=== PATIENT | male | born 1950 | race Caucasian/White ===

== ENCOUNTER 2019-10-05 18:43 | Inpatient (IN) | payer MEDICARE, OTHER, SELFPAY ==
[2019-10-05] VITALS (9 sets, daily range): BP systolic 114–140; BP diastolic 54–78; PULSE 49–79; RESP 16–18; TEMP 36.8; O2SAT 93–99; BMI 29.8
--- NOTE | 2019-10-05 18:52 | CTR_ITS ---
PROCEDURE INFORMATION: Exam: CT Head Without Contrast Exam date and time: 10/05/2019 7:09 PM Age: 68 years old Clinical indication: Syncope and collapse; Patient HX: Syncope after taking 2 ntg TECHNIQUE: Imaging protocol: Computed tomography of the head without contrast. Total DLP: 778.5 mGy-cm Radiation optimization: All CT scans at this facility use at least one of these dose optimization techniques: automated exposure control; mA and/or kV adjustment per patient size (includes targeted exams where dose is matched to clinical indication); or iterative reconstruction. COMPARISON: No relevant prior studies available. FINDINGS: Brain: Normal. No hemorrhage. Unremarkable white matter. No mass effect. Ventricles: Normal. No ventriculomegaly. Bones/joints: Unremarkable. No acute fracture. Sinuses: Visualized sinuses are unremarkable. No fluid levels. Mastoid air cells: Visualized mastoid air cells are well aerated. Soft tissues: Unremarkable. Vasculature: Severe calcified intracranial atherosclerotic vessel disease. CT/CT head wo con* [id number] IMPRESSION: No acute intracranial findings. Radiation Dose CTDIVOL = (mGy): DLP = 778.5 (mGy-cm)
--- NOTE | 2019-10-05 18:52 | ECG_ITS ---
Measurements Intervals [place] Rate: 59 P: 44 SC: 154 QRS: 66 QRSD: 102 T: 30 QT: 406 QTc: 403 SINUS BRADYCARDIA WITH SINUS ARRHYTHMIA No previous ECG available for comparison Electronically Signed On 10-06-2019 9:12:03 CDT by Logan Shaver [id number]
--- NOTE | 2019-10-05 18:54 | XRR_ITS ---
PROCEDURE INFORMATION: Exam: XR Chest, 1 View Exam date and time: 10/05/2019 7:23 PM Age: 68 years old Clinical indication: Prior surgery; Surgery date: 6+ months; Surgery type: Stents; Patient HX: PT had a syncopeal episode before arrival; Additional info: Syncope TECHNIQUE: Imaging protocol: XR of the chest Views: 1 view. COMPARISON: No relevant prior studies available. FINDINGS: Lungs: Unremarkable. No consolidation. Pleural space: Unremarkable. No pleural effusion. No pneumothorax. Heart/Mediastinum: Unremarkable. No cardiomegaly. Bones/joints: Moderate thoracic spondylosis. Mild right primary glenohumeral osteoarthritis. Mild right acromioclavicular arthropathy. XR/XR chest 1V portable [id number] IMPRESSION: No acute findings.
--- NOTE | 2019-10-05 18:55 | W.ED.CHESTPA ---
HPI - Chest Pain General: Chief Complaint: Chest Pain Stated Complaint: SYNCOPE AFTER NTG; CHEST PAIN Time Seen by Provider: 10/05/19 18:52 Source: patient Mode of arrival: ambulatory Limitations: no limitations History of Present Illness: HPI narrative: Patient comes in today by EMS from couple for complaints of some bilateral arm pain and some midsternal chest discomfort. Patient was concerned it may have been a episode of angina or heart problems and took 1 of his nitroglycerin. After taken nitroglycerin patient got lightheaded and felt worse. Patient then contacted EMS and was brought to the emergency department. After EMS arrived and patient was evaluated he felt better and states all symptoms have resolved. Patient denies any loss of consciousness. Patient does have diabetes type 2, hypertension and some coronary artery disease. Patient appears well. Patient appears in no pain at this time. Primary care in Dr. Ordonez in [place]. 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) Review of Systems General: Reports: 10 or more systems reviewed and unremarkable except in HPI and below Card: Reports: chest pain and pre-syncope [facility] PFSH: Social History Smoking and tobacco status: never smoked Physical Exam Const: COMMON NORMALS: no apparent distress and oriented x3 GENERAL APPEARANCE: cooperative HENMT: COMMON NORMALS: normocephalic, external ears normal, EAC's normal, TM's normal bilaterally and external nose normal HEAD & SCALP: normal to inspection and normocephalic FACE & SINUS: normal facial exam NOSE: external nose normal GENERAL EAR: hearing not grossly impaired EXTERNAL EAR: Yes external ears normal EXTERNAL AUDITORY CANAL: EAC's normal TYMPANIC MEMBRANE: TM's normal bilaterally MOUTH: oral and palatal mucosa normal THROAT: posterior oropharynx normal Eye: COMMON NORMALS: PERRL and EOMs intact bilaterally PUPIL: Yes PERRL Neck/C-Spine: COMMON NORMALS: full ROM and no lymphadenopathy Lymph: LYMPHATIC: no lymphedema noted Chest: COMMONS NORMALS: inspection of chest normal and palpation of chest normal Resp: COMMON NORMALS: normal respiratory effort and clear to auscultation bilaterally AUSCULTATION: clear to auscultation bilaterally Cardio: COMMON NORMALS: regular rate and regular rhythm RATE: regular rate RHYTHM: regular rhythm GI: COMMON NORMALS: normal to inspection, nondistended, normoactive bowel sounds and non-tender : COMMON NORMALS: Yes no CVA tenderness BLADDER/KIDNEY EXAM: Yes no CVA tenderness Back/Pelvis: COMMON NORMALS: no CVA tenderness and thoracic and lumbar spine normal to inspection Extremity: COMMON NORMALS: normal to inspection GENERAL: No edema Neuro: COMMON NORMALS: oriented x3, moves all extremities and no focal motor deficits Psych: COMMON NORMALS: mental status grossly normal and cooperative Skin: COMMON NORMALS: no rashes or lesions noted GENERAL SKIN EXAM: no rashes or lesions noted Course ED course: 2199, second troponin came back slightly elevated at 19 with a delta at 7. Reviewed patient with Dr. Smallwood regarding admission. At this time she recommended d-dimer and repeat troponin at 6-hour. Patient's last stent was 10 years ago approximately, with last stress test being 2 years ago and last cardiac visit 2 years ago. Patient at this time is pain-free and is agreeable to plan. 0120, Troponin climbed to 46 with delta increasing to 35. Dr. Smallwood notified and agreed to admission. Vital Signs: Vital signs: Vital Signs Temperature 98.2 F 10/05/19 18:48 Pulse Rate 50 L 10/06/19 00:43 Respiratory Rate 16 10/06/19 00:43 Blood Pressure 115/65 10/05/19 23:50 Pulse Oximetry 97 10/05/19 23:50 MDM - Chest Pain MDM Narrative: Medical decision making narrative: Patient comes in today with complaints of an episode of presyncopal after the use of nitro sublingual. Patient has had some chest pressure on arrival to the ER but has had no other symptoms and symptoms have improved throughout ER stay. Exam notes respirations are even lungs are clear to auscultation. No changes have been noted on the EKG. Differential diagnosis includes ACS, arrhythmia, syncope, TIA, CVA, PE. Laboratory values noted a slowly rising troponin with a 6-hour troponin going to a delta change of 35. D-dimer was negative. CMP and CBC were normal. Lactic was negative. Alcohol and drug screen was negative. Patient needs admission for further monitor and evaluation further with cardio. Patient reports understanding of need for admission and was admitted to observation status per Dr. Smallwood's request. Lab Data: Labs: Lab Results 10/05/19 10/05/19 10/05/19 Range/Units 19:04 19:04 19:04 WBC 8.3 (4.0-10.0) 10^3/ uL RBC 4.69 (4.1-5.3) 10^6/u L Hgb 13.8 (11.7-16.6) g/dL Hct 43.2 (42.0-52.0) % MCV 92.1 (80-94) fL MCH 29.4 (28.0-34.0) pg MCHC 31.9 (30.0-36.0) g/dL RDW 12.2 (12.1-15.1) % Plt Count 203 (130-400) 10^3/c mm MPV 10.3 (7.4-10.4) fL Neut % (Auto) 54.2 % Lymph % (Auto) 32.4 % [place] % (Auto) 8.5 % Eos % (Auto) 3.8 % Baso % (Auto) 0.7 % Neut # (Auto) 4.5 (1.8-7.7) 10^3/u L Lymph # (Auto) 2.7 (0.8-4.8) 10^3/u L [place] # (Auto) 0.7 (0.2-0.9) 10^3/u L Eos # (Auto) 0.3 (0.0-0.8) 10^3/u L Baso # (Auto) 0.1 (0.0-0.1) 10^3/u L Nucleated RBC % (a uto) 0 % Nucleated RBCs # 0.0 /100WBC D-Dimer (0-0.59) ug/mIFE U Sodium 137 (136-145) mmol/L Potassium 5.0 (3.5-5.1) mmol/L Chloride 101 (98-107) mmol/L Carbon Dioxide 25 (22-29) mmol/L Anion Gap 16.0 (5-19) BUN 19 (8-23) mg/dL Creatinine 1.3 H (0.7-1.2) mg/dL GFR Calculation 54.9 L (90-130) mL/min Glucose 181 H (65-115) mg/dL Calculated Osmolal ity 285 (285-295) mOsm/k g Lactic Acid 1.5 (0.5-2.2) mmol/L Calcium 9.9 (8.5-10.5) mg/dL Magnesium 2.1 (1.7-2.3) mg/dL Total Bilirubin 0.2 (0.15-1.2) mg/dL AST 13 (0-40) U/L ALT 13 (0-41) U/L Alkaline Phosphata se 57 (40-130) IU/L Troponin I 6 Hour (0-15) ng/mL Troponin I Hi Sens Del (0-12) ng/L Troponin T Baselin e (0-15) ng/mL Troponin T 120 Min [place] (0-15) ng/mL Delta Troponin T (0-10) ABS# Total Protein 6.2 L (6.6-8.7) g/dL Albumin 4.0 (3.5-5.2) g/dL Globulin 2.2 (1.3-4.6) g/dL TSH 2.89 (0.27-4.20) uIU/ mL Urine Color (Yellow) Urine Appearance (CLEAR) Urine pH (5-7) Ur Specific Gravit y (1.005-1.030) Urine Protein (Negative) Urine Glucose (UA) (Normal) Urine Ketones (Negative) Urine Blood (Negative) Urine Nitrate (Negative) Urine Bilirubin (NEGATIVE) Urine Urobilinogen (Negative) mg/dL Ur Leukocyte Cassi ase (Negative) Urine Opiates Scre en (Negative) ng/mL Ur Barbiturates Sc reen (Negative) ng/mL Ur Phencyclidine S crn (Negative) ng/mL Ur Amphetamines Sc reen (Negative) ng/mL U Benzodiazepines Scrn (Negative) ng/mL Urine Cocaine Scre en (Negative) ng/mL U Marijuana (THC) Screen (Negative) ng/mL Ethyl Alcohol < 10 (0-10) mg/dL 10/05/19 10/05/19 10/05/19 Range/Units 19:04 19:04 19:05 WBC (4.0-10.0) 10^3/ uL RBC (4.1-5.3) 10^6/u L Hgb (11.7-16.6) g/dL Hct (42.0-52.0) % MCV (80-94) fL MCH (28.0-34.0) pg MCHC (30.0-36.0) g/dL RDW (12.1-15.1) % Plt Count (130-400) 10^3/c mm MPV (7.4-10.4) fL Neut % (Auto) % Lymph % (Auto) % [place] % (Auto) % Eos % (Auto) % Baso % (Auto) % Neut # (Auto) (1.8-7.7) 10^3/u L Lymph # (Auto) (0.8-4.8) 10^3/u L [place] # (Auto) (0.2-0.9) 10^3/u L Eos # (Auto) (0.0-0.8) 10^3/u L Baso # (Auto) (0.0-0.1) 10^3/u L Nucleated RBC % (a uto) % Nucleated RBCs # /100WBC D-Dimer <= 0.27 (0-0.59) ug/mIFE U Sodium (136-145) mmol/L Potassium (3.5-5.1) mmol/L Chloride (98-107) mmol/L Carbon Dioxide (22-29) mmol/L Anion Gap (5-19) BUN (8-23) mg/dL Creatinine (0.7-1.2) mg/dL GFR Calculation (90-130) mL/min Glucose (65-115) mg/dL Calculated Osmolal ity (285-295) mOsm/k g Lactic Acid (0.5-2.2) mmol/L Calcium (8.5-10.5) mg/dL Magnesium (1.7-2.3) mg/dL Total Bilirubin (0.15-1.2) mg/dL AST (0-40) U/L ALT (0-41) U/L Alkaline Phosphata se (40-130) IU/L Troponin I 6 Hour (0-15) ng/mL Troponin I Hi Sens Del (0-12) ng/L Troponin T Baselin e 12 (0-15) ng/mL Troponin T 120 Min [place] (0-15) ng/mL Delta Troponin T (0-10) ABS# Total Protein (6.6-8.7) g/dL Albumin (3.5-5.2) g/dL Globulin (1.3-4.6) g/dL TSH (0.27-4.20) uIU/ mL Urine Color Yellow (Yellow) Urine Appearance Clear (CLEAR) Urine pH 5 (5-7) Ur Specific Gravit y 1.025 (1.005-1.030) Urine Protein Neg (Negative) Urine Glucose (UA) Trace H (Normal) Urine Ketones Negative (Negative) Urine Blood Neg (Negative) Urine Nitrate Negative (Negative) Urine Bilirubin Neg (NEGATIVE) Urine Urobilinogen Norm (Negative) mg/dL Ur Leukocyte Cassi ase Negative (Negative) Urine Opiates Scre en (Negative) ng/mL Ur Barbiturates Sc reen (Negative) ng/mL Ur Phencyclidine S crn (Negative) ng/mL Ur Amphetamines Sc reen (Negative) ng/mL U Benzodiazepines Scrn (Negative) ng/mL Urine Cocaine Scre en (Negative) ng/mL U Marijuana (THC) Screen (Negative) ng/mL Ethyl Alcohol (0-10) mg/dL 10/05/19 10/05/19 10/06/19 Range/Units 19:05 20:51 00:47 WBC (4.0-10.0) 10^3/ uL RBC (4.1-5.3) 10^6/u L Hgb (11.7-16.6) g/dL Hct (42.0-52.0) % MCV (80-94) fL MCH (28.0-34.0) pg MCHC (30.0-36.0) g/dL RDW (12.1-15.1) % Plt Count (130-400) 10^3/c mm MPV (7.4-10.4) fL Neut % (Auto) % Lymph % (Auto) % [place] % (Auto) % Eos % (Auto) % Baso % (Auto) % Neut # (Auto) (1.8-7.7) 10^3/u L Lymph # (Auto) (0.8-4.8) 10^3/u L [place] # (Auto) (0.2-0.9) 10^3/u L Eos # (Auto) (0.0-0.8) 10^3/u L Baso # (Auto) (0.0-0.1) 10^3/u L Nucleated RBC % (a uto) % Nucleated RBCs # /100WBC D-Dimer (0-0.59) ug/mIFE U Sodium (136-145) mmol/L Potassium (3.5-5.1) mmol/L Chloride (98-107) mmol/L Carbon Dioxide (22-29) mmol/L Anion Gap (5-19) BUN (8-23) mg/dL Creatinine (0.7-1.2) mg/dL GFR Calculation (90-130) mL/min Glucose (65-115) mg/dL Calculated Osmolal ity (285-295) mOsm/k g Lactic Acid (0.5-2.2) mmol/L Calcium (8.5-10.5) mg/dL Magnesium (1.7-2.3) mg/dL Total Bilirubin (0.15-1.2) mg/dL AST (0-40) U/L ALT (0-41) U/L Alkaline Phosphata se (40-130) IU/L Troponin I 6 Hour 46.94 H (0-15) ng/mL Troponin I Hi Sens Del 34.94 H* (0-12) ng/L Troponin T Baselin e (0-15) ng/mL Troponin T 120 Min [place] 19.44 H (0-15) ng/mL Delta Troponin T 7.44 (0-10) ABS# Total Protein (6.6-8.7) g/dL Albumin (3.5-5.2) g/dL Globulin (1.3-4.6) g/dL TSH (0.27-4.20) uIU/ mL Urine Color (Yellow) Urine Appearance (CLEAR) Urine pH (5-7) Ur Specific Gravit y (1.005-1.030) Urine Protein (Negative) Urine Glucose (UA) (Normal) Urine Ketones (Negative) Urine Blood (Negative) Urine Nitrate (Negative) Urine Bilirubin (NEGATIVE) Urine Urobilinogen (Negative) mg/dL Ur Leukocyte Cassi ase (Negative) Urine Opiates Scre en Negative (Negative) ng/mL Ur Barbiturates Sc reen Negative (Negative) ng/mL Ur Phencyclidine S crn Negative (Negative) ng/mL Ur Amphetamines Sc reen Negative (Negative) ng/mL U Benzodiazepines Scrn Negative (Negative) ng/mL Urine Cocaine Scre en Negative (Negative) ng/mL U Marijuana (THC) Screen Negative (Negative) ng/mL Ethyl Alcohol (0-10) mg/dL EKG Data^: EKG 1: Attestation: I personally reviewed and interpreted this EKG as follows: (1925, Sinus bradycardia, rate 59 regular, no ectopy, no ST elevation) EKG 2: Attestation: I personally reviewed and interpreted this EKG as follows: (2205, NSR, no ectopy, no ST elevation, rate 64 and regular) EKG 3: Attestation: I personally reviewed and interpreted this EKG as follows: (0044 sinus concepción, regular rate 50 bpm, no ectopy, no ST elevation, no change) Discharge Plan Discharge Patient Disposition: Placed in Observation Clinical Impression: Elevated troponin Chest pain Qualifiers: Chest pain type: chest pain due to myocardial ischemia Ischemic chest pain type: unspecified angina pectoris type Qualified Code(s): I25.9 - Chronic ischemic heart disease, unspecified Condition: Stable Referrals: Jose Alberto Ordonez [Primary Care Provider] - Coding Level of Care Code ED Tanning Wheel Filler for Chg Fwd Exam Comprehensive
[2019-10-05 19:23] LABS: Basophils # 0.1 10^3/uL (0.0-0.1); Basophils % 0.7 %; Eosinophils # 0.3 10^3/uL (0.0-0.8); Eosinophils % 3.8 %; Hematocrit 43.2 % (42.0-52.0); Hemoglobin 13.8 g/dL (11.7-16.6); Lymphocytes # 2.7 10^3/uL (0.8-4.8); Lymphocytes % 32.4 %; Mean Corpuscular HGB Conc 31.9 g/dL (30.0-36.0); Mean Corpuscular Hemoglobin 29.4 pg (28.0-34.0); Mean Corpuscular Volume 92.1 fL (80-94); Mean Platelet Volume 10.3 fL (7.4-10.4); Monocytes # 0.7 10^3/uL (0.2-0.9); Monocytes % 8.5 %; Neutrophils # 4.5 10^3/uL (1.8-7.7); Neutrophils % 54.2 %; Nucleated Red Blood Cells % 0 %; Platelet Count 203 10^3/cmm (130-400); Red Blood Count 4.69 10^6/uL (4.1-5.3); Red Cell Distribution Width 12.2 % (12.1-15.1); White Blood Count 8.3 10^3/uL (4.0-10.0)
--- NOTE | 2019-10-05 19:29 | PC.NURSE ---
pt to CT
[2019-10-05 19:40] LABS: Lactic Sepsis W/Reflex 1.5 mmol/L (0.5-2.2)
[2019-10-05 19:43] LABS: Troponin(5th) Baseline 12 ng/mL (0-15)
--- NOTE | 2019-10-05 19:47 | PC.NURSE ---
orthostatic blood pressure Lying= 132/71 Ywglfyf=390/74 Avepqfie=461/69
[2019-10-05 19:53] LABS: Alanine Aminotransferase 13 U/L (0-41); Alkaline Phosphatase 57 IU/L (40-130); Aspartate Amino Transferase 13 U/L (0-40); Blood Urea Nitrogen 19 mg/dL (8-23); Calcium 9.9 mg/dL (8.5-10.5); Carbon Dioxide 25 mmol/L (22-29); Chloride 101 mmol/L (98-107); Creatinine Clr Calc Pharmacy 62.7222; Globulin 2.2 g/dL (1.3-4.6); Glomerular Filtration Rate 54.9 mL/min (90-130); Glucose 181 mg/dL (65-115); Magnesium 2.1 mg/dL (1.7-2.3); Osmolality Calculated 285 mOsm/kg (285-295); Sodium 137 mmol/L (136-145); Thyroid Stimulating Hormone 2.89 uIU/mL (0.27-4.20); Total Bilirubin 0.2 mg/dL (0.15-1.2); Total Protein 6.2 g/dL (6.6-8.7)
[2019-10-05 19:59] LABS: Alcohol Level < 10 mg/dL (0-10)
[2019-10-05 20:16] LABS: Add Urine Microscopic? NO
[2019-10-05 20:21] LABS: Bilirubin Urine Neg (NEGATIVE); Blood Urine Neg (Negative); Glucose Urine UA Trace (Normal); Ketones Urine Negative (Negative); Leukocyte Esterase Urine Negative (Negative); Nitrate Urine Negative (Negative); Protein Urine Neg (Negative); Specific Gravity, Urine 1.025 (1.005-1.030); Urine Appearance Clear (CLEAR); Urine Color Yellow (Yellow); Urobilinogen Urine Norm (Negative); pH Urine 5 (5-7)
[2019-10-05 20:30] LABS: Amphetamines Screen Urine Negative (Negative); Barbiturates Screen Urine Negative (Negative); Benzodiazepines Screen Urine Negative (Negative); Cocaine Screen Urine Negative (Negative); Opiate Screen Urine Negative (Negative); PCP Screen Urine Negative (Negative); THC Screen Urine Negative (Negative)
--- NOTE | 2019-10-05 20:52 | ECG_ITS ---
Measurements Intervals [place] Rate: 64 P: 49 MA: 174 QRS: 67 QRSD: 102 T: 30 QT: 398 QTc: 412 SINUS RHYTHM No previous ECG available for comparison Electronically Signed On 10-06-2019 9:12:46 CDT by Logan Shaver [email or web address]
[2019-10-05 21:23] LABS: Troponin 5 2HR 19.44 ng/mL (0-15); Troponin 5 2HR Delta 7.44 ABS# (0-10)
[2019-10-05 22:28] LABS: D Dimer <= 0.27 ug/mIFEU (0-0.59)
--- NOTE | 2019-10-05 23:29 | PC.NURSE ---
PT RESTING WITH AT BEDSIDE. NO C/O VOICED, STATES HE FEELS BETTER THAN WHEN HE CAME IN. HEART RATE NOTED AT 50-55 BPM WHEN PT IS SLEEPING. PT WAITING 6 HR TROPONIN AT THIS TIME.
[2019-10-06] VITALS (13 sets, daily range): BP systolic 119–155; BP diastolic 61–95; PULSE 50–104; RESP 16–22; TEMP 36.5–37.1; O2SAT 95–98
--- NOTE | 2019-10-06 00:52 | ECG_ITS ---
Measurements Intervals [place] Rate: 50 P: 50 [place]: 173 QRS: 73 QRSD: 106 T: 10 QT: 440 QTc: 405 SINUS BRADYCARDIA NONSPECIFIC T-WAVE ABNORMALITY No previous ECG available for comparison Electronically Signed On 10-06-2019 9:12:33 CDT by Logan Shaver [email or web address]
[2019-10-06 01:06] LABS: Troponin 5 6HR 46.94 ng/mL (0-15)
[2019-10-06 01:13] LABS: Troponin 5 6HR Delta 34.94 ng/L (0-12)
--- NOTE | 2019-10-06 01:14 | PC.NURSE ---
Critical troponin and delta for 6 hour troponin relayed to ELIGIO Whitney.
[2019-10-06] MEDS: aspirin 81 mg Chew Tablet 324 MG PO (01:25)
--- NOTE | 2019-10-06 01:54 | PC.NURSE ---
Called report to KAYELY Zacarias on Med/Surg 2nd floor
[2019-10-06] MEDS: sodium chloride 0.9% 1,000 ML 100 ML IV (02:50)
--- NOTE | 2019-10-06 03:02 | PC.NURSE ---
Pt Arrived from ER in wheel chair escorted by nurse. AAOx3, denies pain or discomfort. Orientated to room and call light. Vitals taken and pt placed on heart monitor, sinus concepción at 53.
--- NOTE | 2019-10-06 04:04 | P.HP_ITS ---
Providers/Chief Complaint Admitting Physician: Kristin Deutsch MD Primary Care Provider: Jose Alberto Ordonez Chief Complaint: SYNCOPE; CHEST PAIN History of Present Illness Travis Garzon is a 68 year old male with PMH CAD, DM, usually follows with cardiologistin Yasir who presented with c/o chest pressure and B/L elbow pain starting yesetrday evening. The elbow pain had been ongoing for about 1 week but chest pressure started yesterday. He took nitroglycerin tablet and this made him light headed, so he ended up calling EMS. His symptoms initially resolved but then returned on presentation to ER. PAin does not appear to be associated to exertion or activity. No apparent aggravating or relieving factors. No shortness of breath. EKGs thus far without acute ST-T changes. His baseline troponin was WNL, subsequently deltas have returned at 7.44 and 34.94. Thus far he has received ASA 325 mg. D dimer was negative. Vitals have been stable, 02 sat 96% on RA. Review of Systems General: Reports: 10 or more systems reviewed and unremarkable except in HPI and below Const: Denies: fever, chills or body aches Eyes: Denies: change in vision, blurry vision or photophobia ENMT: Reports: hoarseness; Denies: throat pain, enlarged tonsils, painful swallowing or nasal congestion Card: Denies: chest pain, palpitations, irregular heart rhythm, edema, swelling of feet/ankles, lightheadedness, pre-syncope, shortness of breath on exertion or shortness of breath when lying down Resp: Denies: shortness of breath, productive cough, non-productive cough, wheezing, stridor, pain on inspiration, change in phlegm color, coughing up blood or chest congestion GI: Denies: abdominal pain, nausea, vomiting, vomiting blood, coffee grounds in vomit, difficulty swallowing, heartburn/indigestion, diarrhea, constipation, cramping, change in stool character, blood in stool or black tarry stool : Denies: flank pain, painful urination, urinary frequency, urinary urgency, urinary hesitancy or blood in urine Musc: Denies: neck pain, back pain, extremity pain, joint swelling, joint warmth or deformity Neuro: Denies: headache, numbness in extremities, weakness in extremities, changes in sensation, difficulty walking, frequent falls, dizziness, vertigo, behavioral changes, slurred speech or seizure-like activity Psych: Denies: anxiety, depression, suicidal ideation or homicidal ideation Endo: Denies: excessive urination, excessive thirst, tired all the time, cold intolerance or hot flashes Donnie/Lymph: Denies: easy bruising or easy bleeding Medications/Allergies Home Medications Medication Instructions Recorded Confirmed Last Taken Type Lantus Solostar U-100 Insulin 30 unit SUBCUT BEDTIME 10/06/19 10/07/19 Unknown History aspirin 81 mg PO DAILY 10/06/19 10/06/19 Unknown History enalapril maleate 20 mg PO DAILY 10/06/19 10/06/19 Unknown History metformin 1,000 mg PO BID 10/06/19 10/06/19 Unknown History metoprolol succinate 25 mg PO DAILY 10/06/19 10/06/19 Unknown History nitroglycerin 0.4 mg SUBLINGUAL Q5M PRN 10/06/19 10/06/19 Unknown History Allergies Allergy/AdvReac Type Severity Reaction Status Date / Time No Known Allergies Allergy Verified 10/05/19 18:48 PFSH Acute PFSH: Medical History Atherosclerotic heart disease of [place] coronary artery with unstable angina pectoris Benign essential hypertension with target blood pressure below 140/90 Dyslipidemia (high LDL; low HDL) Type 2 diabetes mellitus Social History Smoking and tobacco status: never smoked Vitals/I&O/Wt Last Vital Signs Temp 98.0 F 10/06/19 02:14 Pulse 65 10/06/19 02:14 Resp 18 10/06/19 02:14 BP 155/85 10/06/19 02:14 Pulse Ox 97 10/06/19 02:14 Weight last 48 hrs Weight 94.347 kg Physical Exam Narrative: EXAM NARRATIVE: GEN: Awake, alert and oriented, no acute distress CVS: S1S2 N RS: CTA B/L Abd: Soft, nt/nd , bs+ DOCUMENT SCANNER: no focal neuro deficits Data : 10/08/19 03:15 10/08/19 03:15 A&P Assessment and plan (1) NSTEMI (non-ST elevated myocardial infarction): ASA 325mg , B blockers, statin troponin delta 7.44 and 34 cardiology consult if ongoing chest pain TTE Status: Acute Code(s): I21.4 - Non-ST elevation (NSTEMI) myocardial infarction (2) CAD (coronary artery disease): Status: Chronic Code(s): I25.10 - Atherosclerotic heart disease of [place] coronary artery without angina pectoris (3) Diabetes: insulin sliding scale Status: Chronic Qualifiers: Diabetes mellitus type: type 2 Diabetes mellitus detention insulin use: without detention use Diabetes mellitus complication status: with hyperglycemia Qualified Code(s): E11.65 - Type 2 diabetes mellitus with hyperglycemia Code(s): E11.9 - Type 2 diabetes mellitus without complications (4) Chest pain: Status: Acute Qualifiers: Chest pain type: chest pain due to myocardial ischemia Ischemic chest pain type: unspecified angina pectoris type Qualified Code(s): I25.9 - Chronic ischemic heart disease, unspecified Code(s): R07.9 - Chest pain, unspecified Attestations Medical Necessity Statement*: admit for chest pain rule out with rising troponins Coding Level of Care Code Acute Cow Tester for [facility] Fwd Diagnoses NSTEMI (non-ST elevated myocardial infarction) I21.4 CAD (coronary artery disease) I25.10 Diabetes E11.65 Diabetes mellitus type: type 2 Diabetes mellitus detention 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
[2019-10-06 06:19] LABS: Glucose Point of Care 120 mg/dL (70-110)
[2019-10-06 07:13] LABS: Basophils # 0.1 10^3/uL (0.0-0.1); Basophils % 0.6 %; Eosinophils # 0.4 10^3/uL (0.0-0.8); Eosinophils % 4.2 %; Hematocrit 42.7 % (42.0-52.0); Hemoglobin 13.9 g/dL (11.7-16.6); Lymphocytes # 3.6 10^3/uL (0.8-4.8); Lymphocytes % 43.8 %; Mean Corpuscular HGB Conc 32.6 g/dL (30.0-36.0); Mean Corpuscular Hemoglobin 29.3 pg (28.0-34.0); Mean Corpuscular Volume 90.1 fL (80-94); Mean Platelet Volume 10.4 fL (7.4-10.4); Monocytes # 0.8 10^3/uL (0.2-0.9); Monocytes % 9.6 %; Neutrophils # 3.4 10^3/uL (1.8-7.7); Neutrophils % 41.6 %; Nucleated Red Blood Cells % 0 %; Platelet Count 193 10^3/cmm (130-400); Red Blood Count 4.74 10^6/uL (4.1-5.3); White Blood Count 8.3 10^3/uL (4.0-10.0)
--- NOTE | 2019-10-06 07:30 | USCV_ITS ---
Travis Garzon Age: 68 Gender: M : 1950 Exam Date: 10/06/2019 08:51 Ordering Phys: Kristin Deutsch MD Technologist: Sanjuana Turner [place]am [place] [facility] [place]: Syncope, chest pain, evaluate EF, RWMA BP: 137 / 73 HR: 58 Rhythm: Sinus bradycardia Technical Quality: Suboptimal MEASUREMENTS (Male / Female) Normal Values 2D ECHO LV Diastolic Diameter PLAX 3.5 cm 4.2 - 5.9 / 3.9 - 5.3 cm LV Systolic Diameter PLAX 2.5 cm LV Chamber Size 3.8 cm IVS Diastolic Thickness 1.5 cm 0.6 - 1.0 / 0.6 - 0.9 cm IVS Systolic Thickness 1.8 cm LVPW Diastolic Thickness 0.8 cm 0.6 - 1.0 / 0.6 - 0.9 cm LVPW Systolic Thickness 1.1 cm RV Chamber Size 2.0 cm LVOT Diameter 1.9 cm LV Ejection Fraction 2D Teich 58.1 % LV Ejection Fraction MOD 2C 54.2 % LV Ejection Fraction 2C AL 61.1 % LA Diameter 3.5 cm LA Width 2.6 cm LA Height 4.9 cm RA Width 2.9 cm RA Height 3.8 cm Aorta at Sinotubular Diameter 2.7 cm M-MODE LV Diastolic Diameter MM 7.2 cm 4.2 - 5.9 / 3.9 - 5.3 cm LV Systolic Diameter MM 4.8 cm LV Ejection Fraction MM Teich 60.4 % IVS Diastolic Thickness MM 0.9 cm 0.6 - 1.0 / 0.6 - 0.9 cm IVS Systolic Thickness MM 1.2 cm LVPW Diastolic Thickness MM 1.0 cm 0.6 - 1.0 / 0.6 - 0.9 cm LVPW Systolic Thickness MM 1.4 cm Aortic Annulus Diameter 3.6 cm LA Ao Ratio MM 1.0 DOPPLER AV Peak Velocity 109.0 cm/s LVOT Peak Velocity 114.0 cm/s AV Area Cont Eq vti 3.1 cm squared AV Area Cont Eq pk 3.0 cm squared MV Area PHT 3.5 cm squared Mitral E to A Ratio 0.9 MV E' Velocity 11.0 cm/s Mitral E to MV E' Ratio 9.4 Mitral E to LV E' Lateral Ratio 8.0 Mitral E to LV E' Septal Ratio 11.5 TV Peak E Velocity 45.0 cm/s Right Atrial Pressure 3.0 mmHg PV Peak Velocity 66.0 cm/s RV Acceleration Time 0.1 s RV Ejection Time 0.3 s RV AcT/ET 0.3 FINDINGS Left Ventricle Normal left ventricular size and systolic function, EF 64 %. No regional wall motion abnormalities. Right Ventricle The right ventricle is normal in size and function. Right Atrium The right atrium is normal in size. Left Atrium The left atrium is normal in size. Mitral Valve No gross abnormalities noted Aortic Valve No gross abnormalities noted Tricuspid Valve No gross abnormalities noted Pulmonic Valve No gross abnormalities noted Pericardium Normal pericardium without effusion. Aorta Normal ascending aorta dimension. CONCLUSIONS Normal left ventricular size and systolic function, EF 64 %. No regional wall motion abnormalities. No significant stenotic or regurgitant lesions No intracardiac masses There is no pericardial effusion. There are no prior echocardiogram studies to compare. Dr Octaviano Ibrahim MD FACC (Electronically Signed) Final Date: 06 October 2019 10:30 S
[2019-10-06 07:31] LABS: Anion Gap 11.4 (5-19); Blood Urea Nitrogen 16 mg/dL (8-23); Calcium 9.1 mg/dL (8.5-10.5); Carbon Dioxide 30 mmol/L (22-29); Chloride 103 mmol/L (98-107); Glomerular Filtration Rate 60.2 mL/min (90-130); Glucose 127 mg/dL (65-115); Osmolality Calculated 288 mOsm/kg (285-295); Potassium 4.4 mmol/L (3.5-5.1); Sodium 140 mmol/L (136-145)
[2019-10-06 07:33] LABS: Estmated Average Glucose 151; Hemoglobin A1C 6.9 % (4.0-6.0)
[2019-10-06 07:38] LABS: Troponin(5th) Baseline 179 ng/mL (0-15)
[2019-10-06 07:44] LABS: Chol HDL Ratio 4.09 mg/dL (1.0-5.00); Cholesterol 135 mg/dL (0-200); HDL Cholesterol 33 mg/dL (60-100); LDL Cholesterol Calculated 85 mg/dL (50-129); LDL HDL Ratio 2.58 RATIO (0.00-3.22); Triglycerides 87 mg/dL (0-150)
[2019-10-06] MEDS: enoxaparin 100 mg/mL Syringe 90 MG SUBCUT ×2 (08:16→19:37)
[2019-10-06] MEDS: aspirin 81 mg EC Tablet PO (08:17)
[2019-10-06] MEDS: metoprolol succinate ER (24 HR) 25 mg Tablet PO (08:18)
[2019-10-06 09:24] LABS: Troponin 5 2HR 253.5 ng/mL (0-15); Troponin 5 2HR Delta 74.5 ABS# (0-10)
[2019-10-06 11:08] LABS: Glucose Point of Care 182 mg/dL (70-110)
[2019-10-06] MEDS: atorvastatin 40 mg Tablet 20 MG PO (11:33)
[2019-10-06] MEDS: clopidogrel 300 mg Tablet PO (11:33)
--- NOTE | 2019-10-06 11:59 | P.PN_ITS ---
Subjective Subjective: Interval history: No major pain in his chest, but continues to have discomfort in the form of pressure, currently mild. Vitals/I&O/Wt Last Vital Signs Temp 98.0 F 10/06/19 11:27 Pulse 64 10/06/19 11:27 Resp 20 H 10/06/19 11:27 BP 149/73 10/06/19 11:27 Pulse Ox 97 10/06/19 11:27 10/05/19 10/06/19 10/06/19 22:59 06:59 14:59 Intake Total 581.667 / 581.667 Output Total 0 / 0 Balance 0 / 0 581.667 / 581.667 Weight last 48 hrs Weight 94.347 kg Physical Exam Const: COMMON NORMALS: no apparent distress and oriented x3 OTHER: Pleasant. Conversant. HENMT: COMMON NORMALS: oropharynx normal Neck/C-Spine: COMMON NORMALS: no JVD Resp: COMMON NORMALS: normal respiratory effort and clear to auscultation bilaterally AUSCULTATION: clear to auscultation bilaterally Cardio: COMMON NORMALS: no JVD, regular rhythm, S1 normal heart sound, S2 normal heart sound and no murmurs RHYTHM: regular rhythm HEART SOUNDS: S1 normal and S2 normal GI: COMMON NORMALS: normal to inspection, nondistended, normoactive bowel sounds, soft to palpation and non-tender PALPATION: Yes soft Extremity: COMMON NORMALS: no joint enlargement and no pedal edema Neuro: COMMON NORMALS: oriented x3 and moves all extremities Skin: COMMON NORMALS: no rashes or lesions noted GENERAL SKIN EXAM: no rashes or lesions noted Data : 10/06/19 06:50 10/06/19 06:50 A&P Assessment and plan (1) NSTEMI (non-ST elevated myocardial infarction): Aspirin, beta-julius, statin. This morning received Lovenox. Discussed with cardiology. Appreciate recommendations. Loaded with Plavix. TTE pending. Pending additional assessment. Status: Acute Code(s): I21.4 - Non-ST elevation (NSTEMI) myocardial infarction (2) CAD (coronary artery disease): Usually follows with a ceramics machine operator in [place]. Status: Chronic Code(s): I25.10 - Atherosclerotic heart disease of [place] coronary artery without angina pectoris (3) Diabetes: Continue insulin sliding scale. Modify diet to consistent carbohydrate. Status: Chronic Code(s): E11.9 - Type 2 diabetes mellitus without complications (4) Hyperlipidemia: Statin Status: Chronic Code(s): E78.5 - Hyperlipidemia, unspecified Attestations Medical Necessity Statement*: Continue admission for assessment management of non-STEMI. Coding Level of Care Code Acute Groundman/Lineman for [facility] Diagnoses NSTEMI (non-ST elevated myocardial infarction) I21.4 CAD (coronary artery disease) I25.10 Diabetes E11.9 Hyperlipidemia E78.5
--- NOTE | 2019-10-06 12:43 | ECG_ITS ---
Measurements Intervals Vida Rate: 51 P: 34 ID: 147 QRS: 73 QRSD: 110 T: 40 QT: 437 QTc: 403 SINUS BRADYCARDIA No previous ECG available for comparison Electronically Signed On 10-06-2019 20:36:06 CDT by Octaviano Ibrahim M.D. [email or web address]
[2019-10-06 13:20] LABS: Troponin 5 6HR 361.7 ng/mL (0-15); Troponin 5 6HR Delta 182.7 ng/L (0-12)
--- NOTE | 2019-10-06 14:33 | P.CONIM_ITS ---
Providers/Reason For Consult Consulting Physican/Specialty*: ANGY Ibrahim MD/cardiology Reason for Consult*: Patient with chest pain, elevated troponin I, history of coronary artery disease Attending Physician: Everardo Nava Primary Care Provider: Jose Alberto Ordonez History of Present Illness History of Present Illness Travis Garzon is a 68 year old male with a history of coronary disease, high blood pressure, dyslipidemia and type 2 diabetes, apparently has been in his baseline state of health up until yesterday when he started having chest pain. The pain was mild to moderate in intensity and was mid substernal. It did start radiating to both arms. Associated with some shortness of breath and generalized feeling of weakness. No palpitation, dizziness or syncopal episodes. No other associated symptoms or radiation of pain. Because of the persistence of the symptoms, he decided to come to the hospital. Approximately 10 years ago, he had a more or less similar symptoms for which he was seen at the [facility] in [place]. He underwent a cardiac authorization followed by PCI. According the patient, he had 2 stents placed. Details are not evaluated. He used to be followed by a education program manager at the [facility] in [place]. But he has not been to a education program manager for the last year and a half. He has not had any chest pain or unusual shortness of breath. No dizziness or syncopal episodes. He has been compliant with medications. His blood sugar has been fairly under control. No history for any CVA or peripheral artery disease. No history for smoking abuse. No other relevant past medical history. Review of Systems Narrative: CONSTITUTIONAL: No fever or chills. EYES: No blurring of vision or other visual disturbances lately. ENT: No hoarseness of voice, auditory disturbances or sore throat. CARDIOVASCULAR: As mentioned above. RESPIRATORY: No significant cough. GASTROINTESTINAL: No hematemesis or melena. GENITOURINARY: No dysuria or hematuria. INTEGUMENTARY: No skin rashes or history of skin cancer. NEURO: No transient ischemic attacks or amaurosis. PSYCHIATRIC: No history of psychosis or major depression. HEMATOLOGIC: No bleeding disorders or significant anemia. ENDOCRINE: Type 2 diabetes as mentioned above MUSCULOSKELETAL: No recent joint pain or swelling. ALLERGY/IMMUNOLOGY: As mentioned above. Meds/Allergies Home Medications and Allergies Home Medications Medication Instructions Recorded Confirmed Type aspirin 81 mg PO DAILY 10/06/19 10/06/19 History atorvastatin 20 mg PO DAILY 10/06/19 10/06/19 History enalapril maleate 20 mg PO DAILY 10/06/19 10/06/19 History insulin glargine [Lantus Solostar 100 unit SUBCUT BEDTIME 10/06/19 10/06/19 History U-100 Insulin] metformin 1,000 mg PO BID 10/06/19 10/06/19 History metoprolol succinate 25 mg PO DAILY 10/06/19 10/06/19 History nitroglycerin 0.4 mg SUBLINGUAL Q5M PRN 10/06/19 10/06/19 History Allergies Allergy/AdvReac Type Severity Reaction Status Date / Time No Known Allergies Allergy Verified 10/05/19 18:48 Current Medications Current Medications Generic Name Dose Route Start Last Admin Trade Name Freq PRN Reason Stop Dose Admin Aspirin 81 mg 10/06/19 09:00 10/06/19 08:17 Aspirin Ec PO 81 mg DAILY KARLIE Administration Atorvastatin Calcium 20 mg 10/06/19 09:00 10/06/19 11:33 Lipitor PO 20 mg DAILY KARLIE Administration Enalapril Maleate 20 mg 10/06/19 09:00 10/06/19 08:17 Vasotec PO 20 mg DAILY KARLIE Administration Enoxaparin Sodium 90 mg 10/06/19 07:30 10/06/19 08:16 Lovenox 1 mg/kg (90 mg) 90 mg SUBCUT Administration Q12H [facility] Insulin Aspart 0 unit 10/06/19 08:00 10/06/19 11:58 Novolog SUBCUT 6 unit WM&BEDTIME KARLIE Administration Protocol Metoprolol Succinate 25 mg 10/06/19 09:00 10/06/19 08:18 Toprol Xl PO 25 mg DAILY KARLIE Administration PFSH Acute PFSH: Medical History Atherosclerotic heart disease of [place] coronary artery with unstable angina pectoris Benign essential hypertension with target blood pressure below 140/90 Dyslipidemia (high LDL; low HDL) Type 2 diabetes mellitus Social History Smoking and tobacco status: never smoked Vitals/I&O/Wt Last Vital Signs Temp 98.1 F 10/06/19 14:00 Pulse 72 10/06/19 14:00 Resp 22 H 10/06/19 14:00 BP 138/78 10/06/19 14:00 Pulse Ox 98 10/06/19 14:00 10/05/19 10/06/19 10/06/19 22:59 06:59 14:59 Intake Total 581.667 / 581.667 Output Total 0 / 0 Balance 0 / 0 581.667 / 581.667 Weight last 48 hrs Weight 208 lb Physical Exam Narrative: EXAM NARRATIVE: GENERAL: The patient is alert and oriented times three. Not in any acute distress. HEENT: No significant pallor, icterus or lymphadenopathy. The pupils are reactant to light. Oral cavity: There are no mucous membrane lesions. Funduscopic examination: Fundus is not visualized NECK: Trachea appears to be central. No masses noted. No JVD or thyromegaly appreciated. No carotid bruit. RESPIRATORY: Chest is symmetrical. No intercostals muscle retraction or any accessory muscle activation. There is no chest wall tenderness. Breath sounds a re heard bilaterally. No rales or rhonchi heard. No evidence of any consolidation. BREASTS: Deferred. HEART: The PMI not be palpated. No other palpable precordial events. S1 and S2 are normal. No S3 or S4 heard. No pericardial rub or any click heard. ABDOMEN: No vessel pulsations or distention. No tenderness. No organomegaly appreciated. No abdominal bruit. Bowel sounds are normally heard. : Deferred. RECTAL: Deferred. LYMPHATIC: No lymphadenopathy noted in the neck or groin. EXTREMITIES: No edema or cyanosis. No clubbing. The pulses are symmetrical bilaterally. The radial, femoral, dorsalis pedis and the posterior tibial pulses are palpated and found to be in fairly good volume and amplitude. MUSCULOSKELETAL: No acute joint deformities or swelling SKIN: There are no significant rashes or ecchymosis NEUROPSYCHIATRIC: The patient is alert and oriented x3. Appears to be in a good mood. The higher functions are grossly within normal limits. No tremors or rigidity noted. Data Labs: Other Labs: Abnormal lab results 10/05/19 10/05/19 10/05/19 Range/Units 19:04 19:05 20:51 RDW (12.1-15.1) % Carbon Dioxide (22-29) mmol/L Creatinine 1.3 H (0.7-1.2) mg/dL GFR Calculation 54.9 L (90-130) mL/min Glucose 181 H (65-115) mg/dL Hemoglobin A1c (4.0-6.0) % Troponin I 6 Hour (0-15) ng/mL Troponin I Hi Sens Del (0-12) ng/L Troponin T Baselin e (0-15) ng/mL Troponin T 120 Min [place] 19.44 H (0-15) ng/mL Delta Troponin T (0-10) ABS# Total Protein 6.2 L (6.6-8.7) g/dL HDL Cholesterol (60-100) mg/dL Urine Glucose (UA) Trace H (Normal) 10/06/19 10/06/19 10/06/19 Range/Units 00:47 06:50 06:50 RDW 12.0 L (12.1-15.1) % Carbon Dioxide 30 H (22-29) mmol/L Creatinine (0.7-1.2) mg/dL GFR Calculation 60.2 L (90-130) mL/min Glucose 127 H (65-115) mg/dL Hemoglobin A1c (4.0-6.0) % Troponin I 6 Hour 46.94 H (0-15) ng/mL Troponin I Hi Sens Del 34.94 H* (0-12) ng/L Troponin T Baselin e (0-15) ng/mL Troponin T 120 Min [place] (0-15) ng/mL Delta Troponin T (0-10) ABS# Total Protein (6.6-8.7) g/dL HDL Cholesterol (60-100) mg/dL Urine Glucose (UA) (Normal) 10/06/19 10/06/19 10/06/19 Range/Units 06:50 06:50 06:50 RDW (12.1-15.1) % Carbon Dioxide (22-29) mmol/L Creatinine (0.7-1.2) mg/dL GFR Calculation (90-130) mL/min Glucose (65-115) mg/dL Hemoglobin A1c 6.9 H (4.0-6.0) % Troponin I 6 Hour (0-15) ng/mL Troponin I Hi Sens Del (0-12) ng/L Troponin T Baselin e 179 H* (0-15) ng/mL Troponin T 120 Min [place] (0-15) ng/mL Delta Troponin T (0-10) ABS# Total Protein (6.6-8.7) g/dL HDL Cholesterol 33 L (60-100) mg/dL Urine Glucose (UA) (Normal) 10/06/19 10/06/19 Range/Units 08:55 12:51 RDW (12.1-15.1) % Carbon Dioxide (22-29) mmol/L Creatinine (0.7-1.2) mg/dL GFR Calculation (90-130) mL/min Glucose (65-115) mg/dL Hemoglobin A1c (4.0-6.0) % Troponin I 6 Hour 361.7 H (0-15) ng/mL Troponin I Hi Sens Del 182.7 H* (0-12) ng/L Troponin T Baselin e (0-15) ng/mL Troponin T 120 Min [place] 253.5 H (0-15) ng/mL Delta Troponin T 74.5 H* (0-10) ABS# Total Protein (6.6-8.7) g/dL HDL Cholesterol (60-100) mg/dL Urine Glucose (UA) (Normal) Imaging^: Echo: My impression: Normal left ventricular size and systolic function, EF 64 %. No regional wall motion abnormalities. No significant stenotic or regurgitant lesions No intracardiac masses There is no pericardial effusion. There are no prior echocardiogram studies to compare. CT Head: Radiologist's impression: Unremarkable with no acute pathology. EKG^: EKG 1: My Interpretation: Sinus bradycardia with some nonspecific changes. No acute ST-T changes. A&P Assessment and plan (1) NSTEMI (non-ST elevated myocardial infarction): Patient's clinical features are consistent with a non-ST elevation mike cardial infarction. Hemodynamically seems to be stable. Blood pressure slightly elevated. Troponin T is trending upwards. He is currently asymptomatic with no chest pain or shortness of breath. We will continue on the subcu Lovenox, beta-julius, statin, Plavix and aspirin. Continue with other current medications as it is. Status: Acute Code(s): I21.4 - Non-ST elevation (NSTEMI) myocardial infarction (2) Atherosclerotic heart disease of [place] coronary artery with unstable angina pectoris: Patient has a history of coronary disease and previous PCI. For further evaluation of his coronary status, he may benefit from a cardiac catheterization. This was discussed with the patient in detail which he understood well. I may go ahead and schedule him for the angiogram in the morning. Status: Acute Qualifiers: [place] vs. transplanted heart: [place] heart Qualified Code(s): I25.110 - Atherosclerotic heart disease of [place] coronary artery with unstable angina pectoris Code(s): I25.110 - Atherosclerotic heart disease of [place] coronary artery with unstable angina pectoris (3) Dyslipidemia (high LDL; low HDL): May continue on the atorvastatin. Status: Acute Code(s): E78.5 - Hyperlipidemia, unspecified (4) Type 2 diabetes mellitus: Continue on the current management. Status: Acute Qualifiers: Diabetes mellitus complication status: with hyperglycemia Diabetes mellitus keno terminal operator insulin use: with keno terminal operator use Qualified Code(s): E11.65 - Type 2 diabetes mellitus with hyperglycemia; Z79.4 - senior care (current) use of insulin Code(s): E11.9 - Type 2 diabetes mellitus without complications (5) Benign essential hypertension with target blood pressure below 140/90: We will try to optimize his antihypertensive medications. Status: Acute Code(s): I10 - Essential (primary) hypertension Additional A&P Information Based on the clinical progress and the results of the above, further recommendations will be made. Thank you for the opportunity to eval this patient and make this recommendation Consult Attestations Medical Necessity Statement: Patient requires continued hospital stay for close monitoring and further management Coding Level of Care Code Acute Architecture Analyst for [facility] Fwd Diagnoses NSTEMI (non-ST elevated myocardial infarction) I21.4 Atherosclerotic heart disease of [place] coronary artery with unstable angina pectoris I25.110 [place] vs. transplanted heart: [place] heart Dyslipidemia (high LDL; low HDL) E78.5 Type 2 diabetes mellitus E11.65; Z79.4 Diabetes mellitus complication status: with hyperglycemia Diabetes mellitus care home insulin use: with care home use Benign essential hypertension with target blood pressure below 140/90 I10
[2019-10-06 17:10] LABS: Glucose Point of Care 152 mg/dL (70-110)
[2019-10-06 21:06] LABS: Glucose Point of Care 196 mg/dL (70-110)
[2019-10-06 21:28] LABS: Glucose Point of Care 192 mg/dL (70-110)
[2019-10-07] VITALS (44 sets, daily range): BP systolic 92–137; BP diastolic 50–87; PULSE 53–79; RESP 13–27; TEMP 36.6–36.9; O2SAT 93–97
[2019-10-07 06:05] LABS: Basophils # 0.1 10^3/uL (0.0-0.1); Basophils % 0.7 %; Eosinophils # 0.3 10^3/uL (0.0-0.8); Hematocrit 44.7 % (42.0-52.0); Hemoglobin 14.6 g/dL (11.7-16.6); Lymphocytes # 3.3 10^3/uL (0.8-4.8); Lymphocytes % 38.8 %; Mean Corpuscular HGB Conc 32.7 g/dL (30.0-36.0); Mean Corpuscular Hemoglobin 28.7 pg (28.0-34.0); Mean Platelet Volume 10.7 fL (7.4-10.4); Monocytes # 0.8 10^3/uL (0.2-0.9); Monocytes % 9.8 %; Neutrophils % 46.4 %; Nucleated Red Blood Cells % 0 %; Platelet Count 212 10^3/cmm (130-400); Red Blood Count 5.08 10^6/uL (4.1-5.3); Red Cell Distribution Width 11.9 % (12.1-15.1); White Blood Count 8.6 10^3/uL (4.0-10.0)
[2019-10-07] MEDS: sodium chloride 0.9% 1,000 ML 50 ML IV (06:14)
[2019-10-07 06:21] LABS: Anion Gap 16.1 (5-19); Blood Urea Nitrogen 16 mg/dL (8-23); Calcium 9.5 mg/dL (8.5-10.5); Carbon Dioxide 25 mmol/L (22-29); Chloride 103 mmol/L (98-107); Glomerular Filtration Rate 54.9 mL/min (90-130); Glucose 128 mg/dL (65-115); Osmolality Calculated 288 mOsm/kg (285-295); Potassium 4.1 mmol/L (3.5-5.1); Sodium 140 mmol/L (136-145)
[2019-10-07 06:47] LABS: Glucose Point of Care 117 mg/dL (70-110)
[2019-10-07] MEDS: acetaminophen 325 mg Tablet 650 MG PO (06:49)
--- NOTE | 2019-10-07 06:53 | XACV_ITS ---
Exam [facility] Ht: 178 cm Wt: 94 kg BSA: 2.18 m2 Gender: Male : 1950 Any Known Allergies: No known allergies Exam Priority: Routine Procedure(s): Procedure Description: Diagnostic procedure Procedure Description: PCI procedure Procedure Description: Drug Eluting Coronary Stent Procedure Description: PTCA Procedure Description: Miscellaneous Procedure Description: ACT Procedure Description: Coronary Angiography Diagnostic Cath Status: Urgent Diagnostic Findings Coronary angiography shows right dominance. The left main is a medium caliber vessel with a mild diffuse intimal irregularities. The left anterior descending artery is a medium caliber vessel which appears to wrap around the LV apex. The proximal and the mid LAD was found to have mild to moderate diffuse disease. The lesions ranging anywhere from 20-50%. The first and the second diagonal branches are relatively small-caliber vessel with a 60-70% ostial narrowing. The septal perforators also were found to have high-grade ostial narrowing. These were relatively small-caliber vessels. The distal left anterior descending artery was found to have 70-80% tubular eccentric narrowing. Around the apex, the artery appears to bifurcate . One of the bifurcation branches were found to have around 70% tubular narrowing. The left circumflex artery is a medium caliber vessel which was found to have mild diffuse disease. It gives off a large obtuse marginal branch which was found to have a long proximal stented segment, which is widely patent. No other significant as stenotic lesions were noted. The right coronary artery is a medium caliber vessel which appears to have a proximal stented segment which is patent with a minimal in-stent narrowing. The distal stented segment appears to be totally occluded. It appears to be in acute occlusion. The first RV branch was found to have a ostial around 60-70% lesion. Some grade 2 [id number] collaterals were noted during the left coronary injection, filling up the PLV branch of the right coronary artery. PCI Status: Urgent PCI Indication: NSTE - ACS Interventional Findings dLAD: 85% stenosis treated with MDT R ROBERT 2.5X15 DARIA. 0% residual stenosis, BAUTISTA: 3 flow. Distal Right Coronary Artery: 100% stenosis treated with AB MINI TREK 2.00X12 RX BALLOON and MDT R ROBERT 2.25X30 DARIA. 0% residual stenosis, BAUTISTA: 3 flow. Conclusions Is a 68-year-old white male with history of hypertension, dyslipidemia and type II diabetes, is admitted to hospital with features of an acute coronary syndrome. He had evidence of a non-ST elevation myocardial infarction. He has a history of the coronary disease and previous PCI. For further evaluation of his coronary status, a cardiac catheterization was recommended. Patient underwent left heart catheterization with left and right coronary angiogram and aortogram today. He aortogram was performed since the aortic root was found to be dilated during coronary injections. Coronary angiogram revealed mild disease in the left main. High-grade tubular lesion in the distal LAD. Patent stented segments in the first obtuse marginal branch and proximal segment of the right coronary artery. The distal stented segment of the right coronary artery was found to be totally occluded. Mild to moderate diffuse disease was noted in the other vessels. Moderately severe stenosis was noted in the ostium of the septal perforators and diagonal branches of the left anterior descending artery. An aortogram was performed in a shallow ATUL position. The aortic root, at the level of the sinuses was found to be dilated, measuring 4.5 cm. No evidence of any dissection. LV gram was not performed because of some technical difficulties and also because of the concern about dye overload. dLAD was treated with Drug Eluting Stent. Distal Right Coronary Artery was treated with Balloon and Drug Eluting Stent. Recommendations Based on the patient's clinical presentation and the abnormal objective findings, for further management of his condition, a PCI of the RCA and the LAD lesions were thought to be appropriate. I discussed and reviewed the cardiac catheterization data with Dr. Shaver. Dr. Shaver agreed with this plan and took over further management of this patient at this time. 1-Return to inpatient for close monitoring and routine cath care2-Risk factor modification for secondary prevention3-Statin and aspirin 81 mg life-long, if toleratedContinue DAPT for at least one year. We will assess at the end of one year again to continue if further or not5-Continue optimal medical management6-Follow up with Dr. Ibrahim in four weeks and your primary care in 10 days. Diagnostic RX Recommendation: PCI w/o planned CABG Pressures Phase:Rest AO : 101 mmHg / 57 mmHg ( 70 mmHg ) @ 2:46:00 AM 113 mmHg / 60 mmHg ( 82 mmHg ) @ 3:01:00 AM 125 mmHg / 75 mmHg ( 96 mmHg ) @ 3:20:00 AM 111 mmHg / 68 mmHg ( 85 mmHg ) @ 3:37:00 AM 99 mmHg / 66 mmHg ( 82 mmHg ) @ 3:46:00 AM 108 mmHg / 65 mmHg ( 82 mmHg ) @ 3:52:00 AM Clinical Evaluation EBL: 5mL-10mL Procedural Details Procedure Consent Obtained. Pre-Procedure Time Out. Identified patient by full name and date of as verbalized by the patient/guarantor. Does the consent match the physician's order: Yes. Accurate & Complete Informed Consent: Yes. Inpatient/Outpatient History & Physical on Chart: Yes. If H&P is completed, is and addenduem needed: No; If yes, is the addendum complete: N/A. Visualize and Verify Site with Patient/Guarantor: N/A. Relevant Radiology Images available: N/A. Pre-op teaching completed and patient verbalized understanding. The risks, benefits, and alternatives of sedation and/or procedure were discussed by physician. The patient agrees to continue. Procedure started. [facility] Clinical Fraility Score: 3: Managing Well. Manager Health Indications: ACS > 24 hours. Chest Pain Symptom Assessment: Typical Angina Symptoms. Cardiovascular Instability: No. Correct patient, site and procedure confirmed by cath team. PERRLA. Strong, equal hand cash applications specialist bilaterally. Lungs clear x 5 lobes. IV Site on Arrival: 20 gauge in the left anticubital. IV Fluids: 0.9% NaCl at KVO. 0 mL infused prior to lab rn. Pre Procedural Pulses: bilateral dorsalis pedis was 2+. Pre Procedural Pulses: bilateral posterior tibial was 2+. Pre Procedural Pulses: bilateral radial was 3+. Oxygen started at 2liters/min via nasal canula. bilateral groins was prepped with chloroprep then draped in the usual sterile fashion. right radial was prepped with chloroprep then draped in the usual sterile fashion. Physician notified. Physician arrived. Equipment: 5F - Radial. Baseline sample Acquired. HR: 67 BPM. Cardiac Cath Pack. ACIST Manifold Kit Model BT 2000. Heparinized Saline (2 units/mL), 1000 mL bag. Physician scrubbed in. Immediate Pre-Procedure Time Out. Correct Patient: Yes; Correct Procedure: Yes; Correct Site: Yes; Correct Patient Position: Yes; Correct Supplies: Yes; Dried Flammable Prep: Yes; Blood Products Available: N/A;. Lidocaine 1% infiltrated to the right radial. Arterial access obtained. A Terumo 5 Fr Robert Radial Catheter, 110cm was advanced over the wire and used for Left coronary angiography. Catheter removed over the exchange wire. A TR 5FR Radial TIG 4.0 110cm was advanced over the wire and used for Left coronary angiography. Multiple views taken of left coronary artery. Called Dr Shaver to come view films. Catheter redirected to the RCA. Multiple views taken of right coronary artery. A CRD 5F 145 Angled Pig Diagnostic Catheter was advanced over the wire and used for Ventriculography. Dr Shaver arrived to view films. Dr. Ibrahim scrubbed out. Side port of sheath attached to Normal Saline flush at KVO to maintain patency. Bolus complete. Saline now at 100ml/hr. Aortic Root Visualized. Patient's family updated. ACT drawn. Results 164 seconds. Therapeutic limits - pre-heparin administration 90-150 seconds and monitoring heparin during a vascular procedure >[address] Shaver scrubbed in to perform intervention. AP pads applied to patient. 6 nicaraguan JR 4 SH guide catheter was inserted over the wire. Huson guidewire was advanced through the guide catheter to lesion in the distal RCA. Inflation number : 1 A AB MINI TREK 2.00X12 RX BALLOON was prepped and advanced across the Dist RCA , then inflated to 14 FRANCIS for 0:22 seconds. Inflation number: 2 The AB MINI TREK 2.00X12 RX BALLOON was reinflated across the Dist RCA, to 16 FRANCIS for 0:15 seconds. Inflation number: 3 The AB MINI TREK 2.00X12 RX BALLOON was reinflated across the Dist RCA, to 8 FRANCIS for 0:19 seconds. Inflation number: 4 The AB MINI TREK 2.00X12 RX BALLOON was reinflated across the Dist RCA, to 14 FRANCIS for 0:11 seconds. Inflation number: 5 The AB MINI TREK 2.00X12 RX BALLOON was reinflated across the Dist RCA, to 10 FRANCIS for 0:24 seconds. Inflation number: 6 The AB MINI TREK 2.00X12 RX BALLOON was reinflated across the Dist RCA, to 12 FRANCIS for 0:15 seconds. Inflation number: 7 The AB MINI TREK 2.00X12 RX BALLOON was reinflated across the Dist RCA, to 12 FRANCIS for 0:07 seconds. Balloon out. Inflation Number : 8 A DARRION R ROBERT 2.25X30 DARIA -Lot Number# [id number] (exp date 10/25/2019) was prepped and advanced across the Dist RCA. The stent was deployed at 14 FRANCIS for 0:33 seconds. Inflation number: 9 The stent balloon was then re-inflated across the Dist RCA to 14 FRANCIS for 0:10 seconds. Results checked. Stent balloon out over wire. Wire out. ACT drawn. Results 217 seconds. Therapeutic limits - pre-heparin administration 90-150 seconds and monitoring heparin during a vascular procedure >250 seconds. Guide catheter out. Inventory is CRD 6 FR XB 3.5 GUIDE. 6 nicaraguan XB 3.5 guide catheter was inserted over the wire. Huson guidewire was advanced through the guide catheter to lesion in the mid LAD. Inflation Number : 1 A MDT R ROBERT 2.5X15 DARIA -Lot Number# [id number] (exp date 05/07/2021) was prepped and advanced across the Mid LAD. The stent was deployed at 14 FRANCIS for 0:25 seconds. ACT drawn. Results 268 seconds. Therapeutic limits - pre-heparin administration 90-150 seconds and monitoring heparin during a vascular procedure >250 seconds. Physician scrubbed out. A TR Band was successful obtaining hemostatsis at the Right Radial artery insertion site. TR band placed. Hemostasis obtained. Post Procedure: Pulses reassessed and unchanged. PERRLA. Strong, equal hand cash applications specialist bilaterally. No VTE prophylaxis required. Medication's Wasted: Lidocaine 1% = 18 mL. Medication's Wasted: Heparin = 4000 units. Medication's Wasted: Nitro = 49.6 mg. Total IV fluids: 500 mL. Contrast type used: Omnipaque 300 mgI/mL, 500 mL bottle. PCI Indication: NSTE. Post-op diagnosis: NSTEMI, severe 2 vessel CAD. Complications: none. Estimated blood loss: 5mL-10mL. Procedure completed. Patient transferred by wheelchair to 1st floor. Vital chart was stopped. Site: Right Radial artery Sheath Size: 6 Fr Hemostasis Method: TR Band Hemostasis Success: Successful Procedure Medications Start: 7:19 AM Stop: 7:19 AM Medication: Fentanyl Amount: 50 mcg Route: I.V. Start: 7:32 AM Stop: 7:32 AM Medication: Versed Amount: 1 mg Route: I.V. Start: 7:32 AM Stop: 7:32 AM Medication: Fentanyl Amount: 50 mcg Route: I.V. Start: 7:40 AM Stop: 7:40 AM Medication: Verapamil Amount: 5 mg Route: I.A. Start: 7:42 AM Stop: 7:42 AM Medication: Nitrogylcerin Amount: 200 mcg Route: I.A. Start: 7:42 AM Stop: 7:42 AM Medication: 0.9% Saline Amount: 250 ml Route: I.V. bolus Start: 7:44 AM Stop: 7:44 AM Medication: Heparin Amount: 5000 units Route: I.V. Start: 8:19 AM Stop: 8:19 AM Medication: Versed Amount: 1 mg Route: I.V. Start: 8:19 AM Stop: 8:19 AM Medication: Heparin Amount: 5000 units Route: I.V. Start: 8:36 AM Stop: 8:36 AM Medication: Nitrogylcerin Amount: 200 mcg Route: I.C. Start: 8:39 AM Stop: 8:39 AM Medication: Nitrogylcerin Amount: 200 mcg Route: I.C. Start: 8:52 AM Stop: 8:52 AM Medication: Heparin Amount: 2000 units Route: I.V. I, the attending physician, have reviewed and verified all procedure medications. Yes, all medications given per verbal order History/Risk Factors Hypertension: Yes Dyslipidemia: Yes Peripheral Arterial Disease (PAD): No Myocardial Infarction (GA): No Obesity: No Renal Disease: No Tobacco Use: Never Prior Interventions PCI: Yes CABG: No Valve Surgery: No Report Signatures Interventional Workflow - Finalized by: Laura Shaver MD on 10/20/2019 8:01:13 PM Diagnostic Workflow - Finalized by:Dr Octaviano Ibrahim MD [facility] on 10/07/2019 5:16:08 PM
--- NOTE | 2019-10-07 07:22 | PM.PN ---
Subjective Subjective: Interval history: Patient has some chest tightness/heaviness. No unusual shortness of breath. No fever or chills. No cough. Medications: Reviewed: Yes Medication Review Details: Current Medications Acetaminophen (Tylenol) 650 mg PO Q6H PRN PRN Reason: Mild/Mod Pain Or Temp >/= 101 Last Admin: 10/07/19 06:49 Dose: 650 mg Documented by: Aspirin (Aspirin Ec) 81 mg PO DAILY [facility] Last Admin: 10/06/19 08:17 Dose: 81 mg Documented by: Atorvastatin Calcium (Lipitor) 20 mg PO DAILY [facility] Last Admin: 10/06/19 11:33 Dose: 20 mg Documented by: Dextrose (D50w) 25 ml IVP ONCE PRN; Protocol PRN Reason: hypoglycemia protocol Dextrose (D50w) 50 ml IVP PRN PRN; Protocol PRN Reason: hypoglycemia protocol Enalapril Maleate (Vasotec) 20 mg PO DAILY [facility] Last Admin: 10/06/19 08:17 Dose: 20 mg Documented by: Enoxaparin Sodium (Lovenox) 90 mg 1 mg/kg (90 mg) SUBCUT Q12H [facility] Last Admin: 10/06/19 19:37 Dose: 90 mg Documented by: Glucagon (Glucagen) 1 mg IM ONCE PRN; Protocol PRN Reason: Adult Acute Hypoglycemia Prot. Dextrose (D5w) 500 mls @ 100 mls/hr IV ONCE PRN; Protocol PRN Reason: Adult Acute Hypoglycemia Prot Sodium Chloride (Sodium Chloride 0.9%) 1,000 mls @ 50 mls/hr IV .Q20H ONE Stop: 10/07/19 10:54 Last Admin: 10/07/19 06:14 Dose: 50 mls/hr Documented by: Insulin Aspart (Novolog) 0 unit SUBCUT WM&BEDTIME [facility]; Protocol Last Admin: 10/06/19 21:09 Dose: 6 unit Documented by: Insulin Aspart (Novolog) 100 unit SUBCUT BEDTIME [facility] Last Admin: 10/06/19 21:10 Dose: Not Given Documented by: Metoprolol Succinate (Toprol Xl) 25 mg PO DAILY [facility] Last Admin: 10/06/19 08:18 Dose: 25 mg Documented by: Morphine Sulfate (Morphine) 4 mg IVP Q4H PRN PRN Reason: SEVERE PAIN Nitroglycerin (Nitrostat) 0.4 mg SUBLINGUAL Q5M PRN PRN Reason: Chest Pain Ondansetron HCl (Zofran) 4 mg PO Q8H PRN PRN Reason: NAUSEA AND VOMITING Vitals/I&O/Wt Last Vital Signs Temp 98.3 F 10/07/19 04:00 Pulse 67 10/07/19 04:00 Resp 20 H 10/07/19 04:00 BP 130/60 10/07/19 04:00 Pulse Ox 97 10/07/19 04:00 10/06/19 10/07/19 10/07/19 22:59 06:59 14:59 Intake Total 240 / 821.667 Output Total 350 / 350 Balance -110 / 471.667 Weight last 48 hrs Weight 207 lb 11.2 oz Weight 208 lb Physical Exam Narrative: EXAM NARRATIVE: GENERAL: The patient is alert and oriented times three. Not in any acute distress. HEENT: No significant pallor, icterus or lymphadenopathy. The pupils are reactant to light. Oral cavity: There are no mucous membrane lesions. NECK: Trachea appears to be central. No masses noted. No JVD or thyromegaly appreciated. No carotid bruit. RESPIRATORY: Chest is symmetrical. No intercostals muscle retraction or any accessory muscle activation. There is no chest wall tenderness. Breath sounds are heard bilaterally. No rales or rhonchi heard. No evidence of any consolidation. BREASTS: Deferred. HEART: The PMI is not palpated. First and second heart sounds are normal no S3 but there is an S4. Short systolic murmur in the left sternal border. No diastolic murmurs. No pericardial rub. ABDOMEN: No vessel pulsations or distention. No tenderness. No organomegaly appreciated. No abdominal bruit. Bowel sounds are normally heard. : Deferred. RECTAL: Deferred. LYMPHATIC: No lymphadenopathy noted in the neck or groin. EXTREMITIES: No edema or cyanosis. No clubbing. The pulses are symmetrical bilaterally. The radial, femoral, dorsalis pedis and the posterior tibial pulses are palpated and found to be in fairly good volume and amplitude. MUSCULOSKELETAL: No acute joint deformities or swelling SKIN: There are no significant rashes or ecchymosis NEUROPSYCHIATRIC: The patient is alert and oriented x3. Appears to be in a good mood. The higher functions are grossly within normal limits. No tremors or rigidity noted. Data : 10/07/19 05:28 10/07/19 05:28 Other Labs: Abnormal lab results 10/06/19 10/06/19 10/06/19 Range/Units 06:50 06:50 06:50 RDW (12.1-15.1) % MPV (7.4-10.4) fL Carbon Dioxide 30 H (22-29) mmol/L Creatinine (0.7-1.2) mg/dL GFR Calculation 60.2 L (90-130) mL/min Glucose 127 H (65-115) mg/dL Hemoglobin A1c 6.9 H (4.0-6.0) % Troponin I 6 Hour (0-15) ng/mL Troponin I Hi Sens Del (0-12) ng/L Troponin T Baseline 179 H* (0-15) ng/mL Troponin T 120 Minute (0-15) ng/mL Delta Troponin T (0-10) ABS# HDL Cholesterol (60-100) mg/dL 10/06/19 10/06/19 10/06/19 Range/Units 06:50 08:55 12:51 RDW (12.1-15.1) % MPV (7.4-10.4) fL Carbon Dioxide (22-29) mmol/L Creatinine (0.7-1.2) mg/dL GFR Calculation (90-130) mL/min Glucose (65-115) mg/dL Hemoglobin A1c (4.0-6.0) % Troponin I 6 Hour 361.7 H (0-15) ng/mL Troponin I Hi Sens Del 182.7 H* (0-12) ng/L Troponin T Baseline (0-15) ng/mL Troponin T 120 Minute 253.5 H (0-15) ng/mL Delta Troponin T 74.5 H* (0-10) ABS# HDL Cholesterol 33 L (60-100) mg/dL 10/07/19 10/07/19 Range/Units 05:28 05:28 RDW 11.9 L (12.1-15.1) % MPV 10.7 H (7.4-10.4) fL Carbon Dioxide (22-29) mmol/L Creatinine 1.3 H (0.7-1.2) mg/dL GFR Calculation 54.9 L (90-130) mL/min Glucose 128 H (65-115) mg/dL Hemoglobin A1c (4.0-6.0) % Troponin I 6 Hour (0-15) ng/mL Troponin I Hi Sens Del (0-12) ng/L Troponin T Baseline (0-15) ng/mL Troponin T 120 Minute (0-15) ng/mL Delta Troponin T (0-10) ABS# HDL Cholesterol (60-100) mg/dL A&P Assessment and plan (1) NSTEMI (non-ST elevated myocardial infarction): Patient's clinical features are consistent with a non-ST elevation myocardial infarction. Hemodynamically seems to be stable. Blood pressure slightly elevated. Troponin T is trending upwards. Currently he seems to be stable. For further management of his condition, a cardiac catheterization would be appropriate. He is scheduled for the angiogram this morning. Status: Acute Code(s): I21.4 - Non-ST elevation (NSTEMI) myocardial infarction (2) Atherosclerotic heart disease of [place] coronary artery with unstable angina pectoris: Patient has a history of coronary disease and previous PCI. The current characterization findings are as follows. Currently he seems to be stable. Status: Acute Qualifiers: [place] vs. transplanted heart: [place] heart Qualified Code(s): I25.110 - Atherosclerotic heart disease of [place] coronary artery with unstable angina pectoris Code(s): I25.110 - Atherosclerotic heart disease of [place] coronary artery with unstable angina pectoris (3) Dyslipidemia (high LDL; low HDL): May continue on the atorvastatin. Status: Acute Code(s): E78.5 - Hyperlipidemia, unspecified (4) Type 2 diabetes mellitus: Continue on the current management. Status: Acute Qualifiers: Diabetes mellitus complication status: with hyperglycemia Diabetes mellitus continuous churn buttermaker insulin use: with mcfp use Qualified Code(s): E11.65 - Type 2 diabetes mellitus with hyperglycemia; Z79.4 - MCC (current) use of insulin Code(s): E11.9 - Type 2 diabetes mellitus without complications (5) Benign essential hypertension with target blood pressure below 140/90: Currently he is normotensive. Continue on the current medications. Status: Acute Code(s): I10 - Essential (primary) hypertension Additional A&P Information Based on the clinical progress and the results of the above, further recommendations will be made. Thank you for the opportunity to eval this patient and make this recommendation Will have a repeat BMP and CBC in the morning. Attestations Medical Necessity Statement*: Patient requires continued hospital stay for close monitoring and further management Coding Level of Care Code Acute Esl Instructional Assistant for Chg Fwd Diagnoses NSTEMI (non-ST elevated myocardial infarction) I21.4 Atherosclerotic heart disease of [place] coronary artery with unstable angina pectoris I25.110 [place] vs. transplanted heart: [place] heart Dyslipidemia (high LDL; low HDL) E78.5 Type 2 diabetes mellitus E11.65; Z79.4 Diabetes mellitus complication status: with hyperglycemia Diabetes mellitus continuous churn buttermaker insulin use: with continuous churn buttermaker use Benign essential hypertension with target blood pressure below 140/90 I10
[2019-10-07] MEDS: atorvastatin 40 mg Tablet 20 MG PO (10:08)
[2019-10-07] MEDS: clopidogrel 300 mg Tablet PO (10:09)
[2019-10-07] MEDS: metoprolol succinate ER (24 HR) 25 mg Tablet PO (10:09)
[2019-10-07] MEDS: aspirin 81 mg EC Tablet PO (10:10)
[2019-10-07 11:20] LABS: Glucose Point of Care 211 mg/dL (70-110)
[2019-10-07 17:16] LABS: Glucose Point of Care 155 mg/dL (70-110)
--- NOTE | 2019-10-07 19:04 | PC.NURSE ---
received from cardiac laborer mine at 0930.report received.right wrist with tr band on and inflated.no hematoma noted.right hand was warm to touch and with brisk capillary refill.palpable radial pulse noted distal to tr band.approx half hour after pt arrived to floor...hematoma noted proximal to tr band,measuring 4.5 cm.area was soft to touch. 2nd tr band applied per protocol.2nd tr band slowly deflated and eventually removed at 1230.radial tr band slowly deflated,and after approx 6 cc air removed...bleeding ensued.air re-injected and bleeding abated.observed closely and tr band deflation resumed in approx 2 hrs.pt again started bleeding from site and air once again re-injected.waited two hours..began deflation and tr band eventually removed at 1815.site is soft to touch.hand is warm and with brisk capillary refill.palpable radial pulse noted.site dressed with 2x2 guaze and secured with biocclusive drsg.instructed in activity restrictions and instructed to notify staff for any bleeding,numbness,pain..or for any concerns at all.pt verb understanding of instructions
--- NOTE | 2019-10-07 20:23 | P.PN_ITS ---
Subjective Subjective: Interval history: Was having some bleeding in his wrist after angiogram. There is some swelling in the wrist. Slight tenderness. Swelling has not been progressing. Denies any chest pain. Otherwise is feeling better. Vitals/I&O/Wt Last Vital Signs Temp 98.4 F 10/07/19 19:29 Pulse 71 10/07/19 19:30 Resp 18 10/07/19 19:30 BP 92/53 10/07/19 19:30 Pulse Ox 94 10/07/19 19:30 10/07/19 10/07/19 10/07/19 06:59 14:59 22:59 Intake Total 240 / 240 240 / 480 Output Total 640 / 640 Balance -400 / -400 240 / -160 Weight last 48 hrs Weight 94.211 kg Physical Exam Const: COMMON NORMALS: no apparent distress and oriented x3 OTHER: Pleasant. Conversant. HENMT: COMMON NORMALS: oropharynx normal Neck/C-Spine: COMMON NORMALS: no JVD Resp: COMMON NORMALS: normal respiratory effort and clear to auscultation bilaterally AUSCULTATION: clear to auscultation bilaterally Cardio: COMMON NORMALS: no JVD, regular rhythm, S1 normal heart sound, S2 normal heart sound and no murmurs RHYTHM: regular rhythm HEART SOUNDS: S1 normal and S2 normal GI: COMMON NORMALS: normal to inspection, nondistended, normoactive bowel sounds, soft to palpation and non-tender PALPATION: Yes soft Extremity: COMMON NORMALS: no joint enlargement and no pedal edema NARRATIVE EXTREMITY EXAM: Right wrist with swelling medially and proximally from access site. Ecchymosis. No pulsatile mass. Neuro: COMMON NORMALS: oriented x3 and moves all extremities Skin: COMMON NORMALS: no rashes or lesions noted GENERAL SKIN EXAM: no rashes or lesions noted Data : 10/07/19 05:28 10/07/19 05:28 A&P Assessment and plan (1) NSTEMI (non-ST elevated myocardial infarction): Status post coronary angiography with occlusion of prior stent, as well as portion of LAD. Report pending. With small post cannulation hematoma, ecchymosis. Cannot appreciate pulsatile mass. Pending cardiology reassessment. Status: Acute Code(s): I21.4 - Non-ST elevation (NSTEMI) myocardial infarction (2) CAD (coronary artery disease): Usually follows with a asset protection detective in [place]. Status: Chronic Code(s): I25.10 - Atherosclerotic heart disease of [place] coronary artery without angina pectoris (3) Diabetes: Continue insulin sliding scale. Modify diet to consistent carbohydrate. Status: Chronic Code(s): E11.9 - Type 2 diabetes mellitus without complications (4) Hyperlipidemia: Statin Status: Chronic Qualifiers: Hyperlipidemia type: mixed hyperlipidemia Qualified Code(s): E78.2 - Mixed hyperlipidemia Code(s): E78.5 - Hyperlipidemia, unspecified Attestations Medical Necessity Statement*: Continue admission for assessment management after non-STEMI. Coding Level of Care Code Acute Parts Cataloger [facility] Diagnoses NSTEMI (non-ST elevated myocardial infarction) I21.4 CAD (coronary artery disease) I25.10 Diabetes E11.9 Hyperlipidemia E78.2 Hyperlipidemia type: mixed hyperlipidemia
[2019-10-07 20:32] LABS: Glucose Point of Care 221 mg/dL (70-110)
--- NOTE | 2019-10-07 22:22 | PC.NURSE ---
Patient refuses to take Lantus 100 units as ordered. States, I only take 30 units at bedtime....I thought they were going to get that straightened out last night. This nurse explained to patient that we would attempt to get it fixed. Voices understanding. Dressing to right wrist intact with no bleeding noted. Edema noted to lower right arm and hand. Elevated on pillow. Radial pulse present and strong. Lying supine in bed watching television. Denies complaints at this time. Will monitor.
--- NOTE | 2019-10-07 22:30 | PC.NURSE ---
Dr. Hanson notified of patient's refusal of the 100 units of Lantus and that patient also takes 30 units of Lantus at bedtime instead of the 100 units.
--- NOTE | 2019-10-07 22:40 | PC.NURSE ---
Received new order for Lantus 10 units sc at . Patient states, would rather wait until tomorrow to start...I usually take 30...maybe we can get it straightened out tomorrow. Will monitor.
--- NOTE | 2019-10-07 22:51 | P.EN_ITS ---
Event Note Event Note: Patient clarified that his home Lantus is usually 30 units at bedtime. After reviewing recent blood sugars I decreased the current order to 10 units at bedtime. It looks like patient was admitted yesterday. He did not receive any Lantus that I can discern last night. I presume he will need adju stment to dosage during hospital stay. He was hesitant to take tonight due to initial order.
[2019-10-08] VITALS (7 sets, daily range): BP systolic 113–127; BP diastolic 64–72; PULSE 59–92; RESP 17–21; TEMP 36.7–36.8; O2SAT 94–97
--- NOTE | 2019-10-08 03:48 | PC.NURSE ---
Right wrist with dressing intact. No hematoma or bleeding noted. Edema decreased to RFA. Denies complaints at this time. Will monitor.
[2019-10-08 03:50] LABS: Basophils # 0.1 10^3/uL (0.0-0.1); Basophils % 0.5 %; Eosinophils # 0.5 10^3/uL (0.0-0.8); Eosinophils % 4.7 %; Hematocrit 41.2 % (42.0-52.0); Hemoglobin 13.8 g/dL (11.7-16.6); Lymphocytes # 3.7 10^3/uL (0.8-4.8); Lymphocytes % 38.2 %; Mean Corpuscular HGB Conc 33.5 g/dL (30.0-36.0); Mean Corpuscular Hemoglobin 29.6 pg (28.0-34.0); Mean Corpuscular Volume 88.4 fL (80-94); Mean Platelet Volume 10.4 fL (7.4-10.4); Monocytes % 10.5 %; Neutrophils # 4.4 10^3/uL (1.8-7.7); Neutrophils % 45.8 %; Nucleated Red Blood Cells % 0 %; Platelet Count 205 10^3/cmm (130-400); Red Blood Count 4.66 10^6/uL (4.1-5.3); Red Cell Distribution Width 12.1 % (12.1-15.1); White Blood Count 9.6 10^3/uL (4.0-10.0)
[2019-10-08 03:58] LABS: Blood Urea Nitrogen 17 mg/dL (8-23); Calcium 9.2 mg/dL (8.5-10.5); Carbon Dioxide 24 mmol/L (22-29); Chloride 103 mmol/L (98-107); Glomerular Filtration Rate 54.9 mL/min (90-130); Glucose 102 mg/dL (65-115); Osmolality Calculated 285 mOsm/kg (285-295); Sodium 139 mmol/L (136-145)
[2019-10-08 06:26] LABS: Glucose Point of Care 115 mg/dL (70-110)
--- NOTE | 2019-10-08 08:23 | P.PN_ITS ---
Subjective Medications: Reviewed: Yes Medication Review Details: Current Medications Acetaminophen (Tylenol) 650 mg PO Q6H PRN PRN Reason: Mild/Mod Pain Or Temp >/= 101 Last Admin: 10/07/19 06:49 Dose: 650 mg Documented by: Aspirin (Aspirin Ec) 81 mg PO DAILY [facility] Last Admin: 10/07/19 10:10 Dose: 81 mg Documented by: Atorvastatin Calcium (Lipitor) 20 mg PO DAILY [facility] Last Admin: 10/07/19 10:08 Dose: 20 mg Documented by: Dextrose (D50w) 25 ml IVP ONCE PRN; Protocol PRN Reason: hypoglycemia protocol Dextrose (D50w) 50 ml IVP PRN PRN; Protocol PRN Reason: hypoglycemia protocol Enalapril Maleate (Vasotec) 20 mg PO DAILY [facility] Last Admin: 10/07/19 10:10 Dose: 20 mg Documented by: Glucagon (Glucagen) 1 mg IM ONCE PRN; Protocol PRN Reason: Adult Acute Hypoglycemia Prot. Dextrose (D5w) 500 mls @ 100 mls/hr IV ONCE PRN; Protocol PRN Reason: Adult Acute Hypoglycemia Prot Insulin Aspart (Novolog) 0 unit SUBCUT WM&BEDTIME [facility]; Protocol Last Admin: 10/07/19 21:53 Dose: 8 unit Documented by: Insulin Glargine (Lantus) 10 unit SUBCUT BEDTIME [facility] Metoprolol Succinate (Toprol Xl) 25 mg PO DAILY [facility] Last Admin: 10/07/19 10:09 Dose: 25 mg Documented by: Morphine Sulfate (Morphine) 4 mg IVP Q4H PRN PRN Reason: SEVERE PAIN Nitroglycerin (Nitrostat) 0.4 mg SUBLINGUAL Q5M PRN PRN Reason: Chest Pain Ondansetron HCl (Zofran) 4 mg PO Q8H PRN PRN Reason: NAUSEA AND VOMITING Vitals/I&O/Wt Last Vital Signs Temp 98.0 F 10/08/19 08:00 Pulse 66 10/08/19 08:00 Resp 21 H 10/08/19 08:00 BP 118/72 10/08/19 08:00 Pulse Ox 97 10/08/19 08:00 10/07/19 10/08/19 10/08/19 22:59 06:59 14:59 Intake Total 240 / 480 240 / 240 Output Total 450 / 1090 625 / 1715 Balance -210 / -610 -625 / -1235 240 / 240 Weight last 48 hrs Weight 207 lb 11.2 oz Physical Exam Narrative: EXAM NARRATIVE: GENERAL: The patient is alert and oriented times three. Not in any acute distress. HEENT: No significant pallor, icterus or lymphadenopathy. The pupils are reactant to light. Oral cavity: There are no mucous membrane lesions. NECK: Trachea appears to be central. No masses noted. No JVD or thyromegaly appreciated. No carotid bruit. RESPIRATORY: Chest is symmetrical. No intercostals muscle retraction or any accessory muscle activation. There is no chest wall tenderness. Breath sounds are heard bilaterally. No rales or rhonchi heard. No evidence of any consolidation. BREASTS: Deferred. HEART: The PMI is not palpated. First and second heart sounds are normal no S3 but there is an S4. Short systolic murmur in the left sternal border. No diastolic murmurs. No pericardial rub. ABDOMEN: No vessel pulsations or distention. No tenderness. No organomegaly appreciated. No abdominal bruit. Bowel sounds are normally heard. : Deferred. RECTAL: Deferred. LYMPHATIC: No lymphadenopathy noted in the neck or groin. EXTREMITIES: No edema or cyanosis. No clubbing. The pulses are symmetrical bilaterally. The radial, femoral, dorsalis pedis and the posterior tibial pulses are palpated and found to be in fairly good volume and amplitude. MUSCULOSKELETAL: No acute joint deformities or swelling SKIN: There are no significant rashes or ecchymosis NEUROPSYCHIATRIC: The patient is alert and oriented x3. Appears to be in a good mood. The higher functions are grossly within normal limits. No tremors or rigidity noted. Data : 10/08/19 03:15 10/08/19 03:15 Other Imaging: My impression: Patient had a cardiac catheterization which revealed total occlusion of the distal RCA at the region of the previous stent. He had a high- grade lesion in the distal LAD. Mild to moderate diffuse disease in the other vessels. He underwent PCI of the LAD and the RCA lesions. A&P Assessment and plan (1) NSTEMI (non-ST elevated myocardial infarction): Patient's clinical features are consistent with a non-ST elevation myocardial infarction. Hemodynamically seems to be stable. Blood pressure slightly elevated. Troponin T is trending upwards. Currently he seems to be stable. For further management of his condition, a cardiac catheterization would be appropriate. He is scheduled for the angiogram this morning. Status: Acute Code(s): I21.4 - Non-ST elevation (NSTEMI) myocardial infarction (2) Atherosclerotic heart disease of [place] coronary artery with unstable angina pectoris: Patient has a history of coronary disease and previous PCI. The current characterization findings are as follows. Currently he seems to be stable. Status: Acute Qualifiers: [place] vs. transplanted heart: [place] heart Qualified Code(s): I25.110 - Atherosclerotic heart disease of [place] coronary artery with unstable angina pectoris Code(s): I25.110 - Atherosclerotic heart disease of [place] coronary artery with unstable angina pectoris (3) Dyslipidemia (high LDL; low HDL): May continue on the atorvastatin. Status: Acute Code(s): E78.5 - Hyperlipidemia, unspecified (4) Type 2 diabetes mellitus: Continue on the current management. Status: Acute Qualifiers: Diabetes mellitus complication status: with hyperglycemia Diabetes mellitus longterm insulin use: with longwall headgate operator use Qualified Code(s): E11.65 - Type 2 diabetes mellitus with hyperglycemia; Z79.4 - superintendent marine oil terminal (current) use of insulin Code(s): E11.9 - Type 2 diabetes mellitus without complications (5) Benign essential hypertension with target blood pressure below 140/90: Currently he is normotensive. Continue on the current medications. Status: Acute Code(s): I10 - Essential (primary) hypertension Additional A&P Information The patient continues to remain stable, may be discharged home today. He need to have a repeat BMP at the primary care physician's office on next Monday. We will contact the patient from the [facility] for a follow-up ev aluation by telehealth. Coding Level of Care Code Acute Agriculture Research Director for [facility] Fwd Diagnoses NSTEMI (non-ST elevated myocardial infarction) I21.4 Atherosclerotic heart disease of [place] coronary artery with unstable angina pectoris I25.110 [place] vs. transplanted heart: [place] heart Dyslipidemia (high LDL; low HDL) E78.5 Type 2 diabetes mellitus E11.65; Z79.4 Diabetes mellitus complication status: with hyperglycemia Diabetes mellitus longwall headgate operator insulin use: with longwall headgate operator use Benign essential hypertension with target blood pressure below 140/90 I10
[2019-10-08] MEDS: aspirin 81 mg EC Tablet PO (09:06)
[2019-10-08] MEDS: atorvastatin 40 mg Tablet 20 MG PO (09:06)
[2019-10-08] MEDS: metoprolol succinate ER (24 HR) 25 mg Tablet PO (09:06)
--- NOTE | 2019-10-08 11:38 | PC.CHAP ---
Pastoral Care Encounter/Spiritual Assessment Type of Contact [] Declined asbestos cloth inspector visit [] Patient/Family/Request visit [] Outpatient visit [] Follow-up visit [] Physician referral [] Code/Alert [] Routine visit [] Staff referral [] Actively dying [] Patient sleeping [] Family support [] [] Out of room [] Palliative care [] [] Receiving care in room [] Pre-surgical visit [] Trauma [] Long length of stay [] ICU visit [] Other: with staff Relational/Emotional Strength [] Patient feels connected with others/family/visitors/staff [] Distress [] Loneliness/isolation [] Abandonment Spirituality of Patient [] Person of Princess [] Attends Jewish of their Princess [] Believes in Prayer [] Reads Bible or Yarsani materials [] There are Spiritual issues to be addressed Intervention Teacher Interventions [] Prayer [] Active listening [] Non-anxious presence [] Spiritual/emotional support [] Crisis/trauma care [] Spiritual counseling [] Bereavement support [] Provided bereavement packet [] Provided Bible/devotional materials [] Provided toy/stuffed animal, coloring book to patient or family member [] Provided Communion [] Anointing/Ramer [] Salvation [] Completed spiritual assessment [] Other: Impact on Illness or Injury [] Angry [] Fearful [] Anxious [] Often cries [] Exhaustion [] Unable to work [] Unable to attend evangelical [] Unable to walk/stand [] Unable to read [] Unable to drive [] Unable to eat/drink [] Unable to sleep [] Unable to be with family [] Patient intubated [] Other: Summary with staff fellow up Time spent with patient 5 mins
[2019-10-08 11:54] LABS: Glucose Point of Care 269 mg/dL (70-110)
--- NOTE | 2019-10-08 15:13 | PC.NURSE ---
PATIENT AND GIVEN DISCHARGE INSTRUCTIONS AND BOTH VERBALIZED UNDERSTANDING ; IV REMOVED AND PRESSURE DRESSING APPLIED WITH NO BLEEDING NOTED ; RIGHT WRIST C SITE DRESSING C/D/I ; DISTAL PULSES PRESENT ; PATIENT DENIES ANY CHEST PAIN OR SOB AT THIS TIME ; PATIENT REQUESTED TO AMBULATE TO EXIT
--- NOTE | 2019-10-08 19:47 | PM.DCS ---
Discharge Providers Date of Admission: 10/06/19 16:43 Date of Discharge: October 08, 2019 Attending Provider at Admission: Kristin Deutsch MD Attending Provider at Discharge: Everardo Nava Primary Care Provider: Jose Alberto Ordonez Diagnoses at Discharge Discharge Diagnosis (1) NSTEMI (non-ST elevated myocardial infarction): Status: Acute (2) Atherosclerotic heart disease of [place] coronary artery with unstable angina pectoris: Status: Acute Qualifiers: [place] vs. transplanted heart: [place] heart Qualified Code(s): I25.110 - Atherosclerotic heart disease of [place] coronary artery with unstable angina pectoris (3) Dyslipidemia (high LDL; low HDL): Status: Acute (4) Type 2 diabetes mellitus: Status: Acute Qualifiers: Diabetes mellitus fdc insulin use: with fdc use Diabetes mellitus complication status: with hyperglycemia Qualified Code(s): E11.65 - Type 2 diabetes mellitus with hyperglycemia; Z79.4 - ferry terminal supervisor (current) use of insulin (5) Benign essential hypertension with target blood pressure below 140/90: Status: Acute Reason for Visit Reason for Visit: Reason For Visit: SYNCOPE; CHEST PAIN Hospital Course Hospital Course: Very pleasant 68-year-old gentleman with history of coronary disease, status post prior stenting, presenting to the hospital with chest pain, was admitted managed for non-STEMI with finding of occlusion of 1 of the prior stents on coronary geography, as well as additional occlusion of part of LAD. Please refer to final reports when they are available. With ecchymosis, small hematoma of the right wrist after the procedure without any progression, no pulsatile mass, he is feeling much better today. He has no remaining chest pain. He is eager and requests to go home. Please follow BMP on Monday in office. Telehealth follow-up will be arranged with him by cardiology. Physical Exam Const: COMMON NORMALS: no apparent distress and oriented x3 OTHER: Pleasant. Conversant. HENMT: COMMON NORMALS: oropharynx normal Neck/C-Spine: COMMON NORMALS: no JVD Resp: COMMON NORMALS: normal respiratory effort and clear to auscultation bilaterally AUSCULTATION: clear to auscultation bilaterally Cardio: COMMON NORMALS: no JVD, regular rhythm, S1 normal heart sound, S2 normal heart sound and no murmurs RHYTHM: regular rhythm HEART SOUNDS: S1 normal and S2 normal GI: COMMON NORMALS: normal to inspection, nondistended, normoactive bowel sounds, soft to palpation and non-tender PALPATION: Yes soft Extremity: COMMON NORMALS: no joint enlargement and no pedal edema NARRATIVE EXTREMITY EXAM: Right wrist with swelling medially and proximally from access site with almost complete resolution. Ecchymosis. No pulsatile mass. Neuro: COMMON NORMALS: oriented x3 and moves all extremities Skin: COMMON NORMALS: no rashes or lesions noted GENERAL SKIN EXAM: no rashes or lesions noted Discharge Data Data Completed and Pending: Completed Studies During Hospitalization Category Date Time Status CT head wo con* [id number] Urgent Cat Scan 10/05/19 18:52 Completed CXRP [XR chest 1V portable [id number]] S tat Exams 10/05/19 18:54 Completed CV echo complete* [id number] Routine Ultrasound 10/06/19 07:30 Completed Pending at discharge Category Date Time Status HEALTH SCIENCE WRITER request for service Routin e Exams 10/07/19 06:53 Taken Labs from last 24 hours 10/08/19 10/08/19 10/08/19 10:58 06:22 03:15 WBC RBC Hgb Hct MCV MCH MCHC RDW Plt Count MPV Neut % (Auto) Lymph % (Auto) [place] % (Auto) Eos % (Auto) Baso % (Auto) Neut # (Auto) Lymph # (Auto) [place] # (Auto) Eos # (Auto) Baso # (Auto) Nucleated RBC % (a uto) Nucleated RBCs # Sodium 139 Potassium 4.0 Chloride 103 Carbon Dioxide 24 Anion Gap 16.0 BUN 17 Creatinine 1.3 H GFR Calculation 54.9 L Glucose 102 POC Glucose 269 115 Calculated Osmolal ity 285 Calcium 9.2 10/08/19 10/07/19 03:15 20:17 WBC 9.6 RBC 4.66 Hgb 13.8 Hct 41.2 L MCV 88.4 MCH 29.6 MCHC 33.5 RDW 12.1 Plt Count 205 MPV 10.4 Neut % (Auto) 45.8 Lymph % (Auto) 38.2 [place] % (Auto) 10.5 Eos % (Auto) 4.7 Baso % (Auto) 0.5 Neut # (Auto) 4.4 Lymph # (Auto) 3.7 [place] # (Auto) 1.0 H Eos # (Auto) 0.5 Baso # (Auto) 0.1 Nucleated RBC % (a uto) 0 Nucleated RBCs # 0.0 Sodium Potassium Chloride Carbon Dioxide Anion Gap BUN Creatinine GFR Calculation Glucose POC Glucose 221 Calculated Osmolal ity Calcium Vitals: Last Vital Signs Temp 98.0 F 10/08/19 10:53 Pulse 92 10/08/19 15:13 Resp 18 10/08/19 15:13 BP 120/70 10/08/19 15:13 Pulse Ox 94 10/08/19 15:13 Discharge Plan Discharge Patient Disposition: Home, Self-Care Condition: Stable Prescriptions: New Plavix 75 mg tablet 75 mg PO DAILY Qty: 30 RF: 0 Continued enalapril maleate 20 mg Tablet 20 mg PO DAILY RF: 0 aspirin 81 mg Tablet,Delayed Release (Dr/Ec) 81 mg PO DAILY RF: 0 metformin 1,000 mg Tablet 1,000 mg PO BID RF: 0 nitroglycerin 0.4 mg Tablet, Sublingual 0.4 mg SUBLINGUAL Q5M PRN (Reason: Chest Pain) RF: 0 metoprolol succinate 25 mg Tablet Extended Release 24 Hr 25 mg PO DAILY RF: 0 Lantus Solostar U-100 Insulin 100 unit/mL (3 mL) Insulin Pen 30 unit SUBCUT BEDTIME RF: 0 Changed atorvastatin 20 mg Tablet 40 mg PO DAILY Qty: 60 RF: 0 Discharge Orders: Discharge Order (Routine); Ordered 10/08/19 Ordered By: Everardo Nava Referrals: Octaviano Ibrahim MD [Physician] - (You have a cardiology followup at [facility] with Dr. Ibrahim on this October 09 at 2:30pm. Any questions or appointment changes, please call them at [phone]) Jose Alberto Ordonez [Primary Care Provider] - 4-7 days (Jose Alberto palmer's office will be calling to set up a hospital followup to be seen in 4 to 7 days. If you don't hear from them by tomorrow afternoon, please give them a call at [phone]) Discharge Diet: Cardiac and Diabetic Discharge Activity: Limit activity as instructed Patient Instructions: Chest Pain (DC), Post Angiogram Home Care Instructions Activity Restrictions/Additional Instructions: Please set up for BMP at primary care provider's office on Monday. Do not lift above 2 lbs for 3 days. If experiencing non-resolving chest pain, swelling in R wrist or other abnormal symptoms seek medical attention without delay. Discharge Date/Time: 10/08/19 15:37 Discharge Attestations Time Spent in Discharge Care*: greater than 30 min Quality Metrics Clinical Quality Measures During this hospital stay, did patient experience: AMI Clinical Trial Participant: No Contraindication to aspirin (AMI): Aspirin given Contraindication to statin: Statin prescribed Contraindication to PCI: PCI performed Coding Level of Care Code Acute Nursing Consultant for [facility] Diagnoses NSTEMI (non-ST elevated myocardial infarction) I21.4 Atherosclerotic heart disease of [place] coronary artery with unstable angina pectoris I25.110 [place] vs. transplanted heart: [place] heart Dyslipidemia (high LDL; low HDL) E78.5 Type 2 diabetes mellitus E11.65; Z79.4 Diabetes mellitus fdc insulin use: with fdc use Diabetes mellitus complication status: with hyperglycemia Benign essential hypertension with target blood pressure below 140/90 I10
== END 2019-10-08 15:37 | disposition home or self-care (01) | DRG 247 ==
LOC: ER 10-06 01:20 → MEDSURG 10-06 01:40 → CSU 10-07 09:33
PROVIDERS: Emergency Medicine; Internal Medicine Cardiovascular Disease; Admitting Provider Student in an Organized Health Care Education/Training Program; Emergency Provider Nurse Practitioner Family; PCP Family Medicine; Visit Provider Internal Medicine
PROC: 027135Z Dilation of Coronary Artery, Two Arteries with Two Drug-eluting Intraluminal Devices, Percutaneous Approach (ICD-10-PCS; principal; 2019-10-07 07:00)
DX: I21.4 Non-ST elevation (NSTEMI) myocardial infarction (principal); E11.9 Type 2 diabetes mellitus without complications; E78.5 Hyperlipidemia, unspecified; Z79.4 Long term (current) use of insulin; I10 Essential (primary) hypertension; I25.110 Atherosclerotic heart disease of native coronary artery with unstable angina pectoris; Z79.82 Long term (current) use of aspirin
CPT/HCPCS: 12345; 36415; 36416; 70450; 71045; 80048; 80053; 80061; 80306; 80307; 81003; 82962; 83036; 83605; 83735; 84443; 84484; 85025; 85347; 85378; 93005; 93010; 93306; 93452; 96372; 99283; C1725; C1769; C1874; C1887; C1894; C9600; C9601; G0378; J1644; J1650; J1815; J2001; J2250; J3010; J3490; J7030; Q9967

== ENCOUNTER → 2022-02-07 09:34 | Outpatient (BNVA) | payer MEDICARE, OTHER, SELFPAY | PROVIDERS: PCP Family Medicine; Visit Provider Internal Medicine Cardiovascular Disease | DX: I25.10 Atherosclerotic heart disease of native coronary artery without angina pectoris (principal); E11.65 Type 2 diabetes mellitus with hyperglycemia; Z79.4 Long term (current) use of insulin; E78.5 Hyperlipidemia, unspecified; I10 Essential (primary) hypertension; I65.29 Occlusion and stenosis of unspecified carotid artery | CPT/HCPCS: 99214 ==

== ENCOUNTER 2022-02-28 11:39 | Outpatient (CLI) | payer MEDICARE, OTHER, SELFPAY ==
--- NOTE | 2022-02-28 12:00 | USCV_ITS ---
Travis Garzon Age: 71 Gender: M : 1950 Exam Date: 02/28/2022 12:19 Ordering Phys: Octaviano Ibrahim MD ([email or web address]) Technologist: Tara Alexis Exam Location: [facility] [place] Indication: bruit Risk Factors: Previous Vascular Surgery: None Right Brachial BP: / Left Brachial BP: / Right Left Velocity (cm/s) Spectral Plaque Velocity (cm/s) Spectral Plaque Syst/Diast Broadening Syst/Diast Broadening 54.70/ 8.50 Prox CCA 61.50 / 9.40 59.00/ 11.10 Hetro Mid CCA 69.50 / 20.90 48.70/ 6.80 Distal CCA 53.00 / 10.30 Hetro 36.30/ 10.10 Prox ICA 86.00 / 20.90 Hetro 70.70/ 17.90 Mid ICA 69.50 / 20.90 82.90/ 23.90 Distal ICA 94.80 / 24.30 131.50 ECA 168.30 1.41 ICA/CCA 1.52 Antegrade Vertebral Antegrade 47.30/ 11.20 cm/s 65.10/ 13.20 cm/s Tri Subclavian Tri 175.5 164.7 0 0 FINDINGS Mild to moderate plaques bilaterally at the bifurcations Intimal thickening in the common carotid arteries bilaterally. Antegrade flow in the vertebral arteries bilaterally. Normal Doppler flow velocities in the external carotid, vertebral and subclavian arteries. CONCLUSIONS Mild to moderate plaques bilaterally at the bifurcations with Doppler features, suggesting less than 50% stenosis Intimal thickening in the common carotid arteries bilaterally No significant stenosis in the external carotid, vertebral and subclavian arteries, based on the above findings No similar previous studies are available for comparison Dr Octaviano Ibrahim MD [facility] (Electronically Signed) Final Date: 28 February 2022 23:19 S
== END 2022-02-28 11:40 | disposition home or self-care (01) ==
PROVIDERS: PCP Family Medicine; Visit Provider Internal Medicine Cardiovascular Disease
DX: I65.23 Occlusion and stenosis of bilateral carotid arteries (principal); I77.9 Disorder of arteries and arterioles, unspecified
CPT/HCPCS: 93880

== ENCOUNTER → 2022-08-01 12:31 | Outpatient (BNVA) | payer MEDICARE, OTHER, SELFPAY | PROVIDERS: PCP Family Medicine; Visit Provider Nurse Practitioner Family | DX: I25.10 Atherosclerotic heart disease of native coronary artery without angina pectoris (principal); I95.1 Orthostatic hypotension | CPT/HCPCS: 99214 ==

== ENCOUNTER → 2023-02-13 11:10 | Outpatient (BNVA) | payer MEDICARE, OTHER, SELFPAY | PROVIDERS: PCP Family Medicine; Visit Provider Internal Medicine Cardiovascular Disease | DX: I25.10 Atherosclerotic heart disease of native coronary artery without angina pectoris (principal); E11.65 Type 2 diabetes mellitus with hyperglycemia; Z79.4 Long term (current) use of insulin; E78.5 Hyperlipidemia, unspecified; I95.1 Orthostatic hypotension; I10 Essential (primary) hypertension; Z79.84 Long term (current) use of oral hypoglycemic drugs | CPT/HCPCS: 99214 ==

== ENCOUNTER 2023-03-06 11:51 | Inpatient (IN) | payer MEDICARE, OTHER, SELFPAY ==
[2023-03-06] VITALS (61 sets, daily range): BP systolic 97–164; BP diastolic 42–95; PULSE 58–76; RESP 1–32; TEMP 36.9–37.2; O2SAT 92–99; BMI 29.4
--- NOTE | 2023-03-06 12:04 | CTR_ITS ---
PROCEDURE INFORMATION: Exam: CT Head Without Contrast Exam date and time: 03/06/2023 12:13 PM Age: 72 years old Clinical indication: Altered mental status/memory loss; Additional info: Posterior CVA TECHNIQUE: Imaging protocol: Computed tomography of the head without contrast. Radiation optimization: All CT scans at this facility use at least one of these dose optimization techniques: automated exposure control; mA and/or kV adjustment per patient size (includes targeted exams where dose is matched to clinical indication); or iterative reconstruction. REPORTING DATA: Count of CT and Cardiac NM exams in prior 12 months: This patient has received 0 known CTs and 0 known cardiac nuclear medicine studies in the 12 months prior to the current study. COMPARISON: CT head wo con* [id number] 10/05/2019 7:30 PM RADIATION DOSE METRICS: Total DLP (mGy-cm): 576.05 FINDINGS: Brain: Normal. No hemorrhage. No mass effect or midline shift. Cortical sulci and white matter are unremarkable for age. Cerebral ventricles: Unremarkable for age. Paranasal sinuses: Visualized sinuses are unremarkable. No fluid levels. Mastoid air cells: Visualized mastoid air cells are well aerated. Bones/joints: Unremarkable. No acute fracture. Soft tissues: Unremarkable. CT/CT head wo con* [id number] IMPRESSION: No acute intracranial abnormality.
--- NOTE | 2023-03-06 12:04 | XR_ITS ---
WS: [id number] EXAMINATION: XR chest 1V portable [id number] REASON FOR EXAM: dyspnea/cough COMPARISON: 10/05/2019 ORDER DATE: 03/06/2023 12:13 PM TECHNIQUE: A single, portable frontal chest x-ray was obtained. X-RAY FINDINGS: The lungs are clear. Pleural spaces are clear. No pleural effusions or pneumothorax. Cardiomediastinal silhouette is normal. No evidence for pulmonary edema. Soft tissue and osseous structures are unremarkable except for mild right acromioclavicular arthropat hy. No tubes or lines are present. IMPRESSION: Unremarkable frontal portable chest x-ray. No significant change from previous.
--- NOTE | 2023-03-06 12:09 | ECG_ITS ---
[facility] Test Date: 2023-03-06 Pat Name: Travis Garzon Department: Room: Gender: Male Head Coach: : 1950 Requested By: Wild Alba Order Number: [id number] Cecelia MD: Janine Moffett M.D. Measurements Intervals [place] Rate: 63 P: 25 MT: 166 QRS: 68 QRSD: 97 T: 59 QT: 408 QTc: 421 Interpretive Statements SINUS RHYTHM Compared to ECG 10/06/2019 08:27:17 Sinus bradycardia no longer present Electronically Signed On 03-06-2023 17:14:51 CDT by Janine Moffett M.D. [id number]
[2023-03-06 12:19] LABS: Basophils % 0.6 %; Eosinophils # 0.2 10^3/uL (0.0-0.8); Eosinophils % 2.9 %; Hematocrit 42.6 % (42.0-52.0); Lymphocytes # 3.1 10^3/uL (0.8-4.8); Lymphocytes % 43.8 %; Mean Corpuscular HGB Conc 32.9 g/dL (30.0-36.0); Mean Corpuscular Hemoglobin 30.1 pg (28.0-34.0); Mean Corpuscular Volume 91.6 fl (80-94); Mean Platelet Volume 9.6 fL (7.4-10.4); Monocytes # 0.6 10^3/uL (0.2-0.9); Monocytes % 8.7 %; Neutrophils # 3.13 10^3/uL (1.8-7.7); Neutrophils % 43.7 %; Nucleated Red Blood Cells % 0 %; Platelet Count 173 10^3/cmm (130-400); Red Blood Count 4.65 10^6/uL (4.1-5.3); Red Cell Distribution Width 12.6 % (12.1-15.1); White Blood Count 7.2 10^3/uL (4.0-10.0)
[2023-03-06 12:28] LABS: Glucose Point of Care 98 mg/dL (70-110)
[2023-03-06 12:31] LABS: Alanine Aminotransferase 13 U/L (0-41); Albumin Level 4.2 g/dL (3.5-5.2); Alkaline Phosphatase 58 U/L (40-130); Anion Gap 14.7 (5-19); Aspartate Amino Transferase 12 U/L (0-40); Blood Urea Nitrogen 19 mg/dL (8-23); Calcium 8.7 mg/dL (8.5-10.5); Carbon Dioxide 24 mmol/L (22-29); Chloride 106 mmol/L (98-107); Globulin 1.9 g/dL (1.3-4.6); Glucose 106 mg/dL (65-115); Osmolality Calculated 293 mOsm/kg (285-295); Potassium 4.7 mmol/L (3.5-5.1); Sodium 140 mmol/L (136-145); Total Bilirubin 0.3 mg/dL (0.15-1.2); Total Protein 6.1 g/dL (6.6-8.7)
--- NOTE | 2023-03-06 12:35 | CTR_ITS ---
PROCEDURE INFORMATION: Exam: CTA Head With Contrast, Arteriography Exam date and time: 03/06/2023 12:55 PM Age: 72 years old Clinical indication: Vertigo; Additional info: Posterior circulation stroke TECHNIQUE: Imaging protocol: Computed tomographic angiography of the head with contrast. Exam focused on the arteries. 3D rendering (Not supervised by radiologist): MIP and/or 3D reconstructed images were created by the technologist. Radiation optimization: All CT scans at this facility use at least one of these dose optimization techniques: automated exposure control; mA and/or kV adjustment per patient size (includes targeted exams where dose is matched to clinical indication); or iterative reconstruction. Contrast material: OMNI 350; Contrast volume: 100 ml; Contrast route: INTRAVENOUS (IV); REPORTING DATA: Count of CT and Cardiac NM exams in prior 12 months: This patient has received 0 known CTs and 0 known cardiac nuclear medicine studies in the 12 months prior to the current study. COMPARISON: CT head wo con* [id number] 03/06/2023 12:13 PM RADIATION DOSE METRICS: Total DLP (mGy-cm): 493.47 FINDINGS: ANTERIOR CIRCULATION: Right internal carotid artery: Intracranial segment is patent with no significant stenosis. No aneurysm. Right middle cerebral artery: No occlusion or significant stenosis. No aneurysm. Right anterior cerebral artery: No occlusion or significant stenosis. No aneurysm. Left internal carotid artery: Intracranial segment is patent with no significant stenosis. No aneurysm. Left middle cerebral artery: No occlusion or significant stenosis. No aneurysm. Left anterior cerebral artery: No occlusion or significant stenosis. No aneurysm. POSTERIOR CIRCULATION: Right vertebral artery: No occlusion or significant stenosis. No aneurysm. Left vertebral artery: No occlusion or significant stenosis. No aneurysm. Basilar artery: No occlusion or significant stenosis. No aneurysm. Right posterior cerebral artery: origin right posterior cerebral artery arising from the right carotid siphon. Left posterior cerebral artery: No occlusion or significant stenosis. No aneurysm. Brain: No intracranial hemorrhage, mass effect, or midline shift. Cerebral ventricles: No ventriculomegaly. Bones/joints: Unremarkable. No acute fracture. Soft tissues: Unremarkable. Mild polypoid mucosal thickening of the maxillary sinuses. PROCEDURE INFORMATION: Exam: CTA Neck With Contrast Exam date and time: 03/06/2023 12:55 PM Age: 72 years old Clinical indication: Vertigo; Additional info: Posterior circulation stroke TECHNIQUE: Imaging protocol: Computed tomographic angiography of the neck with contrast. 3D rendering (Not supervised by radiologist): MIP and/or 3D reconstructed images were created by the technologist. Radiation optimization: All CT scans at this facility use at least one of these dose optimization techniques: automated exposure control; mA and/or kV adjustment per patient size (includes targeted exams where dose is matched to clinical indication); or iterative reconstruction. Contrast material: OMNI 350; Contrast volume: 100 ml; Contrast route: INTRAVENOUS (IV); REPORTING DATA: Count of CT and Cardiac NM exams in prior 12 months: This patient has received 0 known CTs and 0 known cardiac nuclear medicine studies in the 12 months prior to the current study. COMPARISON: CT head wo con* [id number] 03/06/2023 12:13 PM RADIATION DOSE METRICS: Total DLP (mGy-cm): 493 FINDINGS: Right common carotid artery: No stenosis. No dissection or occlusion. Right internal carotid artery: Minimal calcified plaque right ICA without evidence of stenosis. Right external carotid artery: No occlusion or stenosis of the origin. Left common carotid artery: No stenosis. No dissection or occlusion. Left internal carotid artery: Calcified plaque proximal segment left ICA resulting in mild stenosis (less than 50%). Left external carotid artery: No occlusion or stenosis of the origin. Right vertebral artery: No stenosis. No dissection or occlusion. Left vertebral artery: No stenosis. No dissection or occlusion. Soft tissues: Normal. No significant soft tissue swelling. Bones/joints: No acute fracture. CT/CT angio headneck* [id number] IMPRESSION: No large vessel stenosis or occlusion. IMPRESSION: 1. Calcified plaque left carotid bulb with mild stenosis left ICA (less than 50%). 2. Unremarkable CTA of the vertebrobasilar circulation. REFERENCES: NASCET CRITERIA. The degree of stenosis in the cervical segment of the internal carotid artery is based on NASCET criteria. Normal is no stenosis. Mild is less than 50% stenosis. Moderate is 50-69% stenosis. Severe is 70% to 99% stenosis. Total occlusion is no detectable patent lumen.
[2023-03-06] MEDS: iohexol 350 mg/mL 500 mL Btl (per mL) IV (13:00)
--- NOTE | 2023-03-06 13:12 | PC.PHAR ---
pt and pts verified pts medications-pt states he uses basaglar u-100 30 units hs rx filled 01/05/23 40 units hs-notes are made in the pharmacy comments
--- NOTE | 2023-03-06 14:02 | ED_ITS ---
HPI - Dizziness General: Chief Complaint: Dizziness Stated Complaint: n/v Time Seen by Provider: 03/06/23 12:03 Source: patient Mode of arrival: EMS History of Present Illness: HPI Narrative: 72-year-old male presents emergency room with sudden onset of dizziness and ataxia. Patient got up this morning late in the morning for him around 930 recorded 10 he was in his normal state of health and had no difficulties with gait balance vision dizziness or any other noticeable symptoms he went through his usual morning routine made his own breakfast and then suddenly at around 1015 began to experience a sharp headache and severe dizziness. This is accompanied by some ataxia and some mild vision changes when I came to see the patient given most of this history to the nurses but he was laying on the exam table with his eyes closed and states as long as he laid flat on his back all of his symptoms went away. He is normally completely independent with ambulation. MD elicited complaint: dizziness, lightheadedness, difficulty walking and vertigo Onset (ago): hour(s) (2) Timing: sudden onset Severity: severe Description: room spinning , lightheadedness, off-balance and difficulty walking Exacerbating factors: movement/ambulation Relieving factors: remaining still and lying down Associated symptoms: Reports headache(s); Denies change in hearing, chest pain, chills, cough, diaphoresis, ear discharge, ear pressure, fevers/chills, malaise, nausea, nasal congestion, palpitations, rash, short of breath, syncope, tinnitus, vomiting or weakness Associated neuro symptoms: Deny confusion, difficulty speaking, dysphagia, diplopia, extremity weakness, facial numbness, facial weakness, gait changes, numbness in extremities or visual changes Review of Systems Const: Denies: fever(s), chills, malaise or diaphoresis ENMT: Denies: ear discharge, change in hearing, tinnitus or nasal congestion Card: Denies: chest pain, palpitations or syncope Resp: Denies: dyspnea GI: Denies: abdominal pain, nausea, vomiting or dysphagia Neuro: Reports: headache(s), lack of coordination and difficulty walking; Denies: numbness in extremities or confusion PFS ED PFSH: Medical History 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 Benign essential hypertension with target blood pressure below 140/90 Dyslipidemia Dyslipidemia (high LDL; low HDL) Orthostatic hypotension Type 2 diabetes mellitus Family History Denies family history of Diabetes CAD (coronary artery disease) Clotting disorder Dementia Chronic kidney disease (CKD) Suicide Anesthesia complication Bleeding disorder Lung disease Cancer Stroke Social History Smoking and tobacco status: never smoked Alcohol intake: never Substance/Drug Use: never Physical Exam Const: GENERAL APPEARANCE: cooperative and comfortable ORIENTATION/CONSCIOUSNESS: Yes awake, Yes oriented to person, Yes oriented to place and Yes oriented to time HENMT: COMMON NORMALS: normocephalic, atraumatic and hearing grossly normal bilaterally HEAD & SCALP: normocephalic and atraumatic Resp: COMMON NORMALS: normal respiratory effort, No retractions, No use of accessory muscles and clear to auscultation bilaterally AUSCULTATION: clear to auscultation bilaterally Cardio: COMMON NORMALS: regular rate, regular rhythm and No murmurs present ( Cardio) RATE: regular rate RHYTHM: regular rhythm GI: COMMON NORMALS: Soft to palpation and No hepatosplenomegaly present AUSCULTATION: Yes normoactive bowel sounds PALPATION: Yes Soft to palpation, No Tenderness to palpation present (GI), No Guarding due to palpation present (GI) and Yes No hepatosplenomegaly present Extremity: COMMON NORMALS: normal to inspection, capillary refill normal, no clubbing, cyanosis or edema, no calf tenderness and no pedal edema Neuro: SENSORIUM/ORIENTATION: Yes oriented to person, Yes oriented to place and Yes oriented to time OTHER: Mild right-sided ataxia with some right-sided nystagmus as well symptoms resolved when lying flat worsen when we tried to ambulate the patient. After the initial CT was done attempted to ambulate patient required assist of 2 to remove 3 steps. Skin: COMMON NORMALS: no rashes or lesions noted GENERAL SKIN EXAM: no rashes or lesions noted Course Vital Signs: Vital signs: Vital Signs Temperature 98.9 F 03/06/23 11:59 Pulse Rate 61 03/06/23 14:31 Respiratory Rate 18 03/06/23 14:31 Blood Pressure 122/69 03/06/23 14:31 Pulse Oximetry 98 03/06/23 14:30 Oxygen Delivery Me thod Room Air 03/06/23 13:30 MDM - Dizziness Medical Decision Making Patient has acute posterior circulation stroke no acute bleed on the CT his blood glucose normal blood pressure well controlled discussed risks and benefits with the patient and his we will proceed with tPA. Dr. Clark is at the bedside seen and evaluated patient and recommends tPA patient consented will be admitted to the hospitalist service. Medical Records I reviewed the patient's medical records. Lab Data I reviewed the patient's lab results. 03/06/23 12:05 03/06/23 12:[address] 03/06/23 12:04 IMPRESSION: No acute intracranial abnormality. Head/Neck CTA 03/06/23 12:35 IMPRESSION: No large vessel stenosis or occlusion. IMPRESSION: 1. Calcified plaque left carotid bulb with mild stenosis left ICA (less than 50%). 2. Unremarkable CTA of the vertebrobasilar circulation. REFERENCES: NASCET CRITERIA. The degree of stenosis in the cervical segment of the internal carotid artery is based on NASCET criteria. Normal is no stenosis. Mild is less than 50% stenosis. Moderate is 50-69% stenosis. Severe is 70% to 99% stenosis. Total occlusion is no detectable patent lumen. Laboratory Results WBC 7.2 10^3/uL (4.0-10.0) 03/06/23 12:05 RBC 4.65 10^6/uL (4.1-5.3) 03/06/23 12:05 Hgb 14.0 g/dL (11.7-16.6) 03/06/23 12:05 Hct 42.6 % (42.0-52.0) 03/06/23 12:05 MCV 91.6 fl (80-94) 03/06/23 12:05 MCH 30.1 pg (28.0-34.0) 03/06/23 12:05 MCHC 32.9 g/dL (30.0-36.0) 03/06/23 12:05 RDW 12.6 % (12.1-15.1) 03/06/23 12:05 Plt Count 173 10^3/cmm (130-400) 03/06/23 12:05 MPV 9.6 fL (7.4-10.4) 03/06/23 12:05 Neut % (Auto) 43.7 % 03/06/23 12:05 Lymph % (Auto) 43.8 % 03/06/23 12:05 [place] % (Auto) 8.7 % 03/06/23 12:05 Eos % (Auto) 2.9 % 03/06/23 12:05 Baso % (Auto) 0.6 % 03/06/23 12:05 Neut # (Auto) 3.13 10^3/uL (1.8-7.7) 03/06/23 12:05 Lymph # (Auto) 3.1 10^3/uL (0.8-4.8) 03/06/23 12:05 [place] # (Auto) 0.6 10^3/uL (0.2-0.9) 03/06/23 12:05 Eos # (Auto) 0.2 10^3/uL (0.0-0.8) 03/06/23 12:05 Baso # (Auto) 0.0 10^3/uL (0.0-0.1) 03/06/23 12:05 Nucleated RBC % (auto) 0 % 03/06/23 12:05 Nucleated RBCs # 0.0 /100WBC 03/06/23 12:05 Sodium 140 mmol/L (136-145) 03/06/23 12:05 Potassium 4.7 mmol/L (3.5-5.1) 03/06/23 12:05 Chloride 106 mmol/L (98-107) 03/06/23 12:05 Carbon Dioxide 24 mmol/L (22-29) 03/06/23 12:05 Anion Gap 14.7 (5-19) 03/06/23 12:05 BUN 19 mg/dL (8-23) 03/06/23 12:05 Creatinine 1.3 mg/dL (0.7-1.2) H 03/06/23 12:05 GFR Calculation Not Reportable 03/06/23 12:05 Glucose 106 mg/dL (65-115) 03/06/23 12:05 POC Glucose 98 mg/dL (70-110) 03/06/23 12:24 Calculated Osmolality 293 mOsm/kg (285-295) 03/06/23 12:05 Calcium 8.7 mg/dL (8.5-10.5) 03/06/23 12:05 Total Bilirubin 0.3 mg/dL (0.15-1.2) 03/06/23 12:05 AST 12 U/L (0-40) 03/06/23 12:05 ALT 13 U/L (0-41) 03/06/23 12:05 Alkaline Phosphatase 58 U/L (40-130) 03/06/23 12:05 Total Protein 6.1 g/dL (6.6-8.7) L 03/06/23 12:05 Albumin 4.2 g/dL (3.5-5.2) 03/06/23 12:05 Globulin 1.9 g/dL (1.3-4.6) 03/06/23 12:05 Discharge Plan Discharge Patient Disposition: Admitted As Inpatient Admit Provider: Kristin Deutsch Clinical Impression: Posterior circulation stroke Condition: Stable Coding Level of Care Code ED [employer]cycle [employer]r [employer]
[2023-03-06 15:30] LABS: Add Urine Microscopic? NO; Charge for UA Resulting for Rev
--- NOTE | 2023-03-06 15:42 | PC.NURSE ---
Pt arrives to ICU from ED. NIH done at bedside with [facility] Emergency room. No deficits noted. Room, call light, and patient handbook orientation completed.
[2023-03-06 16:03] LABS: Bilirubin Urine Neg (Negative); Blood Urine Neg (Negative); Glucose Urine UA Norm (Normal); Ketones Urine Negative (Negative); Leukocyte Esterase Urine Negative (Negative); Nitrate Urine Negative (Negative); Protein Urine Neg (Negative); Urine Appearance Clear (CLEAR); Urine Color Straw (Yellow); Urobilinogen Urine Norm (Negative); pH Urine 5 (5-7)
--- NOTE | 2023-03-06 16:51 | PM.HP ---
Providers/Chief Complaint Admitting Physician: Kristin Deutsch MD Primary Care Provider: Jose Alberto Ordonez Chief Complaint: n/v History of Present Illness Travis Garzon is a 72 year old male who was in his usual state of health until 930 this morning when he suddenly developed acute onset of dizziness and ataxia. He states that he felt this as dizziness and felt off balance while making his breakfast. He had a sharp headache at the time of onset of these events. He had some mild blurred vision at this time. He noted that his symptoms were much improved if he laid down flat and did not move his head to either side. Stroke code was called due to concern for posterior circulation stroke and he did receive alteplase after being seen by neurology. CT head was negative. CTA of the head and neck showed calcified plaque in the left carotid bulb with mild stenosis of the left ICA. Unremarkable CTA of the vertebrobasilar circulation. He is being admitted to the ICU for post alteplase monitoring. Blood pressure was transiently elevated in the 150 systolic range. At the time of assessment it is at 130/69. Symptoms are improved compared to upon presentation. Review of Systems General: Reports: 10 or more systems reviewed and unremarkable except in HPI and below Const: Denies: fever(s), chills or body aches Eyes: Denies: change in vision, blurry vision or photophobia ENMT: Reports: hoarseness; Denies: throat pain, enlarged tonsils, odynophagia or nasal congestion Card: Denies: chest pain, palpitations, irregular heart rhythm, edema, swelling of feet/ankles, lightheadedness, pre-syncope, dyspnea on exertion or orthopnea Resp: Denies: dyspnea, productive cough, non-productive cough, wheezing, stridor, pain on inspiration, change in phlegm color, hemoptysis or chest congestion GI: Denies: abdominal pain, nausea, vomiting, hematemesis, coffee ground emesis, dysphagia, heartburn, diarrhea, constipation, GI cramping, change in stool character, hematochezia or melena : Denies: flank pain, dysuria, urinary frequency, urinary urgency, urinary hesitancy or hematuria Musc: Denies: neck pain, back pain, extremity pain, joint swelling, joint warmth or deformity Neuro: Denies: headache(s), numbness in extremities, weakness in extremities, sensory changes, difficulty walking, frequent falls, dizziness, vertigo, behavioral changes, Slurred speech present or seizure-like activity Psych: Denies: anxiety, depression, suicidal ideation or homicidal ideation Endo: Denies: polyuria, polydipsia, tired all the time, cold intolerance or hot flashes Donnie/Lymph: Denies: easy bruising or easy bleeding Medications/Allergies Home Medications Medication Instructions Recorded Confirmed Last Taken Type aspirin 81 mg tablet,delayed 81 mg PO QAM 10/06/19 03/06/23 03/06/23 History release enalapril maleate 20 mg tablet 20 mg PO QAM 10/06/19 03/06/23 03/06/23 History metformin 1,000 mg tablet 1,000 mg PO BID 10/06/19 03/06/23 03/06/23 10:00 History sitagliptin phosphate 100 mg tablet 100 mg PO QAM 01/28/21 03/06/23 03/06/23 History atorvastatin 40 mg tablet 40 mg PO BEDTIME 03/06/23 03/06/23 03/05/23 History insulin glargine 100 unit/mL (3 30 unit SUBCUT BEDTIME 03/06/23 03/06/23 03/05/23 History mL) subcutaneous pen (Basaglar KwikPen U-100 Insulin) loratadine 10 mg tablet (Claritin) 10 mg PO BEDTIME 03/06/23 03/06/23 03/05/23 History metoprolol tartrate 25 mg tablet 25 mg PO QAM 03/06/23 03/06/23 03/06/23 History multivitamin 1 tab PO DAILY 03/06/23 03/06/23 Unknown History nitroglycerin 0.4 mg sublingual 0.4 mg sublingual Q5M PRN Chest 03/06/23 03/06/23 Unknown History tablet (Nitrostat) Pain Allergies Allergy/AdvReac Type Severity Reaction Status Date / Time No Known Allergies Allergy Verified 03/06/23 13:12 PFSH Acute PFSH: Medical History 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 Benign essential hypertension with target blood pressure below 140/90 Dyslipidemia Dyslipidemia (high LDL; low HDL) Orthostatic hypotension Type 2 diabetes mellitus Family History Denies family history of Diabetes CAD (coronary artery disease) Clotting disorder Dementia Chronic kidney disease (CKD) Suicide Anesthesia complication Bleeding disorder Lung disease Cancer Stroke Social History Smoking and tobacco status: never smoked Alcohol intake: never Substance/Drug Use: never Vitals/I&O/Wt Last Vital Signs Temp 98.4 F 03/06/23 16:00 Pulse 67 03/06/23 16:13 Resp 18 03/06/23 16:00 BP 150/73 03/06/23 16:15 Pulse Ox 98 03/06/23 16:15 O2 Del Method Room Air 03/06/23 16:15 03/06/23 03/06/23 03/06/23 06:59 14:59 22:59 Intake Total 100 / 100 Output Total 250 / 250 Balance -150 / -150 Weight last 48 hrs Weight 92.986 kg Physical Exam Narrative: General: No acute distress, AO x3 HEENT: PERRLA, pupils bilaterally equal and reactive, pallors not present Chest: Normal vesicular breath sounds, no added sounds, equal good air entry bilaterally CVS: S1-S2 regular, no murmurs, no tachycardia, no gallops, no rubs Abdomen: Soft, nontender, no organomegaly, bowel sounds present Neuro: No focal deficits, no facial deformity, AO x3, power 5/5 in all limbs Data 03/06/23 12:05 03/06/23 12:05 Other data: Radiology Impressions Head CT 03/06/23 12:04 IMPRESSION: No acute intracranial abnormality. Head/Neck CTA 03/06/23 12:35 IMPRESSION: No large vessel stenosis or occlusion. IMPRESSION: 1. Calcified plaque left carotid bulb with mild stenosis left ICA (less than 50%). 2. Unremarkable CTA of the vertebrobasilar circulation. REFERENCES: NASCET CRITERIA. The degree of stenosis in the cervical segment of the internal carotid artery is based on NASCET criteria. Normal is no stenosis. Mild is less than 50% stenosis. Moderate is 50-69% stenosis. Severe is 70% to 99% stenosis. Total occlusion is no detectable patent lumen. Laboratory Results WBC 7.2 10^3/uL (4.0-10.0) 03/06/23 12:05 RBC 4.65 10^6/uL (4.1-5.3) 03/06/23 12:05 Hgb 14.0 g/dL (11.7-16.6) 03/06/23 12:05 Hct 42.6 % (42.0-52.0) 03/06/23 12:05 MCV 91.6 fl (80-94) 03/06/23 12:05 MCH 30.1 pg (28.0-34.0) 03/06/23 12:05 MCHC 32.9 g/dL (30.0-36.0) 03/06/23 12:05 RDW 12.6 % (12.1-15.1) 03/06/23 12:05 Plt Count 173 10^3/cmm (130-400) 03/06/23 12:05 MPV 9.6 fL (7.4-10.4) 03/06/23 12:05 Neut % (Auto) 43.7 % 03/06/23 12:05 Lymph % (Auto) 43.8 % 03/06/23 12:05 [place] % (Auto) 8.7 % 03/06/23 12:05 Eos % (Auto) 2.9 % 03/06/23 12:05 Baso % (Auto) 0.6 % 03/06/23 12:05 Neut # (Auto) 3.13 10^3/uL (1.8-7.7) 03/06/23 12:05 Lymph # (Auto) 3.1 10^3/uL (0.8-4.8) 03/06/23 12:05 [place] # (Auto) 0.6 10^3/uL (0.2-0.9) 03/06/23 12:05 Eos # (Auto) 0.2 10^3/uL (0.0-0.8) 03/06/23 12:05 Baso # (Auto) 0.0 10^3/uL (0.0-0.1) 03/06/23 12:05 Nucleated RBC % (auto) 0 % 03/06/23 12:05 Nucleated RBCs # 0.0 /100WBC 03/06/23 12:05 Sodium 140 mmol/L (136-145) 03/06/23 12:05 Potassium 4.7 mmol/L (3.5-5.1) 03/06/23 12:05 Chloride 106 mmol/L (98-107) 03/06/23 12:05 Carbon Dioxide 24 mmol/L (22-29) 03/06/23 12:05 Anion Gap 14.7 (5-19) 03/06/23 12:05 BUN 19 mg/dL (8-23) 03/06/23 12:05 Creatinine 1.3 mg/dL (0.7-1.2) H 03/06/23 12:05 GFR Calculation Not Reportable 03/06/23 12:05 Glucose 106 mg/dL (65-115) 03/06/23 12:05 POC Glucose 98 mg/dL (70-110) 03/06/23 12:24 Calculated Osmolality 293 mOsm/kg (285-295) 03/06/23 12:05 Calcium 8.7 mg/dL (8.5-10.5) 03/06/23 12:05 Total Bilirubin 0.3 mg/dL (0.15-1.2) 03/06/23 12:05 AST 12 U/L (0-40) 03/06/23 12:05 ALT 13 U/L (0-41) 03/06/23 12:05 Alkaline Phosphatase 58 U/L (40-130) 03/06/23 12:05 Total Protein 6.1 g/dL (6.6-8.7) L 03/06/23 12:05 Albumin 4.2 g/dL (3.5-5.2) 03/06/23 12:05 Globulin 1.9 g/dL (1.3-4.6) 03/06/23 12:05 Urine Color Straw (Yellow) 03/06/23 14:09 Urine Appearance Clear (CLEAR) 03/06/23 14:09 Urine pH 5 (5-7) 03/06/23 14:09 Ur Specific [place] 1.010 (1.005-1.030) 03/06/23 14:09 Urine Protein Neg (Negative) 03/06/23 14:09 Urine Glucose (UA) Norm (Normal) 03/06/23 14:09 Urine Ketones Negative (Negative) 03/06/23 14:09 Urine Blood Neg (Negative) 03/06/23 14:09 Urine Nitrate Negative (Negative) 03/06/23 14:09 Urine Bilirubin Neg (Negative) 03/06/23 14:09 Urine Urobilinogen Norm mg/dL (Negative) 03/06/23 14:09 Ur Leukocyte Esterase Negative (Negative) 03/06/23 14:09 A&P Assessment and plan (1) Posterior circulation stroke: Patient presented to the emergency room with chief complaints of ataxia, dizziness, and blurred vision Due to concerns for posterior circulation stroke he received alteplase in the emergency room. Currently admitted to the ICU for post tPA monitoring. Neuro recommendations appreciated. CT head and CTA as above. Check echocardiogram. Admit to ICU Telemetry monitoring and neurochecks per protocol. Continue atorvastatin 40 mg p.o. at bedtime as per his home medications. Continue home dose of metoprolol 25 mg p.o. every morning and enalapril at home dosing to maintain blood pressure. Insulin sliding scale for diabetes management while inpatient. We will repeat CT of the head 24 hours post alteplase to rule out any bleeding. Hold off on starting aspirin for 24 hours post alteplase PT OT speech therapy assessments Attestations Medical Necessity Statement*: Currently on neuro monitoring in the ICU post alteplase, repeat head CT in 24 hours, medication and blood pressure management as above. Critical Care Time: The high probability of a clinically significant, sudden or life threatening deterioration of the patient's [neurological,l cardiovascular] system(s) required my full and direct attention, intervention and personal management. The critical care time is as shown. This time is in addition to time spent performing any reported procedures but includes the following: [x] Data and vital sign review and interpretation [x] Patient assessment, examination and intervention [x] Documentation [x] Medication orders and management Critical Care Time (min): 40 Coding Level of Care Code Critical Care >/= 30 minutes Critical care time (in minutes): 40 Diagnoses Posterior circulation stroke I63.50
--- NOTE | 2023-03-06 18:05 | PM.SAN ---
Stroke Alert Activation ED Arrival Date: 03/06/23 ED Arrival Time: 11:56 ED Physican at Bedside: 12:03 Last Known Normal/at Baseline: 1-2 hours ago Other Last Known Well Infomation: Stroke alert was activated at 1206 after the patient was evaluated by Dr. Langford who thought there was a high chance this might be posterior circulation ischemia. He judged that by reading over the triage note which indicated that the patient was dizzy. I saw him in the emergency department just as he got back from CAT scan. Dr. Langford and I evaluated the patient simultaneously, obtained permission and initiated tPA. The social service coordinator was wheeling the patient out of CAT scan as I arrived. He stated throughout the process. He got out of bed late this morning around 930, attended to his usual hygiene and then went into the kitchen and made himself some oatmeal. He was in the process of making oatmeal at 1015 AM when he suddenly complained that he felt dizzy and had a sharp headache. He was picked up by [facility] and brought in without reactivation of the stroke team and they came in without lights. His was surprised because she was concerned that he was having a stroke. He came into triage with these complaints and as the nurse wrote those down Dr. Langford saw the complaints and immediately went to evaluate the patient and activated the stroke team. The patient says that as long as he lays very still on the stretcher he is not dizzy. Dr. Langford and the social service coordinator attempted to get the patient up off of the bed in CAT scan and he could not stand up even with [address] Langford noticed nystagmus. He immediately ordered tPA and the nurse was in the process of gathering the tPA as I accompanied him back to his room in the ER. On examination the patient had ratchety eye movements to the right and nystagmus at end gaze on the right. He had rnhzgn-dpkz-rnuqqq and uhzh-rykp-qtkr ataxia on the right side only. He had no sensory or motor deficit. His speech was clear. Stroke Alert Activated by: Dr. Langford Stroke Alert Activation Time: 12:06 Stroke MD @ Bedside Time: 12:06 NIH Stroke Scale Time: 12:20 NIH stroke score NIHSS: Level Of Consciousness - 1a: 0 Level Of Consciousness Questions - 1b: Both Correct Level Of Consciousness Commands - 1c: Both Correct Best Gaze - 2: Normal Visual Christine - 3: No Visual Loss Facial Palsy - 4: Normal Motor Arm Right - 5: No Drift Motor Arm Left - 5: No Drift Motor Leg Right - 6: No Drift Motor Leg Left - 6: No Drift Limb Ataxia - 7: Present In Two Limbs Sensory - 8: Normal Best Language - 9: No Aphasia Dysarthia - 10: Normal Extinction And Inattention - 11: 0 Score: Total Score: 2 Stroke Alert Data/Treatment Time to CT of Head: 12:04 CT Results Time: 12:29 CT Impression: Normal brain Stroke Risk Factors: coronary artery disease, hyperlipidemia, hypertension and diabetes mellitus tPA Started Time: tPA Started - Time: 12:31 tPA Admin Prior to Arrival: No Other Patient & Family Education: I went over the cartoon of the brain with the patient's so that she could understand the location of the stroke. I went over the sialitis CT angiogram with her. Other Information: CT angiogram was completed later. The vertebrobasilar circulation was unremarkable. There was left carotid stenosis less than 50% right carotid artery was unremarkable. The intracranial circulation was unremarkable. Critical Care Time Critical Care Time: 30 - 74 mins A&P Assessment and plan (1) Cerebellar stroke: 72-year-old man with multiple risk factors including hypertension, diabetes and heart disease who presents with an acute stroke most likely in the right cerebellum based upon his inability to stand up and right-sided appendicular ataxia with abnormal eye movements. Although his stroke scale score was not high, he was unable to walk and therefore he should receive tPA. The risk of 6 out of 100 hemorrhage with tPA was explained to the patient and his and they were given to understand that there is no increase in risk of morbidity or mortality with that drug and he gave informed consent prior to the bolus. Timeout was held and we knew that the patient was not on an anticoagulant, that his blood sugar was normal on bedside testing and his blood pressure was under good control. Coding Level of Care Code Acute Code for [facility] Diagnoses Cerebellar stroke I63.9
[2023-03-06 18:14] LABS: Glucose Point of Care 189 mg/dL (70-110)
[2023-03-06] MEDS: insulin lispro 100 unit/1 mL SUBCUT ×2 (18:25→21:17)
--- NOTE | 2023-03-06 18:42 | PC.NURSE ---
Shift summary: Pt has had no deficits, No issues since his arrival to ICU. VSS. afebrile. He has urinated once. He ate most of his evening meal.
[2023-03-06 21:09] LABS: Glucose Point of Care 150 mg/dL (70-110)
[2023-03-06] MEDS: insulin glargine 100 units/1 mL 30 UNIT SUBCUT (21:16)
[2023-03-06] MEDS: atorvastatin 40 mg Tablet PO (21:17)
[2023-03-07] VITALS (32 sets, daily range): BP systolic 94–149; BP diastolic 41–82; PULSE 46–87; RESP 0–24; TEMP 36.2–36.5; O2SAT 93–99
[2023-03-07 05:02] LABS: Basophils # 0.1 10^3/uL (0.0-0.1); Basophils % 0.6 %; Eosinophils # 0.3 10^3/uL (0.0-0.8); Eosinophils % 2.5 %; Hematocrit 41.8 % (42.0-52.0); Hemoglobin 13.4 g/dL (11.7-16.6); Lymphocytes # 4.9 10^3/uL (0.8-4.8); Lymphocytes % 48.6 %; Mean Corpuscular HGB Conc 32.1 g/dL (30.0-36.0); Mean Corpuscular Hemoglobin 29.2 pg (28.0-34.0); Mean Corpuscular Volume 91.1 fl (80-94); Mean Platelet Volume 9.8 fL (7.4-10.4); Monocytes # 0.9 10^3/uL (0.2-0.9); Neutrophils # 3.92 10^3/uL (1.8-7.7); Nucleated Red Blood Cells % 0 %; Platelet Count 180 10^3/cmm (130-400); Red Blood Count 4.59 10^6/uL (4.1-5.3); Red Cell Distribution Width 12.5 % (12.1-15.1)
[2023-03-07 05:20] LABS: Estmated Average Glucose 134; Hemoglobin A1C 6.3 % (4.0-6.0)
[2023-03-07 05:24] LABS: Alanine Aminotransferase 12 U/L (0-41); Albumin Level 3.6 g/dL (3.5-5.2); Alkaline Phosphatase 56 U/L (40-130); Aspartate Amino Transferase 12 U/L (0-40); Blood Urea Nitrogen 19 mg/dL (8-23); Calcium 8.6 mg/dL (8.5-10.5); Carbon Dioxide 26 mmol/L (22-29); Chloride 105 mmol/L (98-107); Chol HDL Ratio 3.39 mg/dL (1.0-5.00); Cholesterol 105 mg/dL (0-200); Globulin 2.4 g/dL (1.3-4.6); Glucose 63 mg/dL (65-115); HDL Cholesterol 31 mg/dL (60-100); LDL Cholesterol Calculated 60 mg/dL (50-129); LDL HDL Ratio 1.94 RATIO (0.00-3.22); Osmolality Calculated 286 mOsm/kg (285-295); Sodium 138 mmol/L (136-145); Total Bilirubin 0.2 mg/dL (0.15-1.2); Triglycerides 71 mg/dL (0-150)
[2023-03-07 05:30] LABS: Anion Gap 11.4 (5-19); Potassium 4.4 mmol/L (3.5-5.1)
--- NOTE | 2023-03-07 06:00 | USCV_ITS ---
Travis Garzon Age: 72 Gender: M : 1950 Exam Date: 03/07/2023 01:11 Ordering Phys: Kristin Deutsch MD Technologist: CT Exam Location[place] [facility] [place]: stroke BP: 101 / 49 HR: 48 Rhythm: Sinus Technical Quality: Adequate MEASUREMENTS (Male / Female) Normal Values 2D ECHO LV Chamber Size 4.6 cm RV Chamber Size 3.1 cm LVOT Diameter 2.2 cm LV Ejection Fraction MOD 2C 48.1 % LV Ejection Fraction 2C AL 48.1 % LA Diameter 3.6 cm LA Width 4.3 cm LA Height 5.5 cm RA Width 3.2 cm RA Height 5.0 cm Aorta at Sinotubular Diameter 2.4 cm M-MODE Aortic Annulus Diameter 3.3 cm LA Ao Ratio MM 1.1 MV E Point Septal Separation 1.2 cm DOPPLER AV Peak Velocity 108.0 cm/s LVOT Peak Velocity 92.0 cm/s AV Area Cont Eq vti 3.7 cm squared AV Area Cont Eq pk 3.2 cm squared MV Area PHT 3.4 cm squared Mitral E to A Ratio 1.1 MV E' Velocity 53.5 cm/s Mitral E to MV E' Ratio 9.2 Mitral E to LV E' Lateral Ratio 10.2 Mitral E to LV E' Septal Ratio 8.3 TR Peak Velocity 119.0 cm/s TR Peak Gradient 5.7 mmHg TR Mean Velocity 93.0 cm/s TR Mean Gradient 3.7 mmHg TR Velocity Time Integral 27.9 cm TV Peak E Velocity 68.0 cm/s Right Atrial Pressure 3.0 mmHg Pulmonary Artery Systolic Pressu 8.7 mmHg PV Peak Velocity 103.0 cm/s FINDINGS Left Ventricle Normal left ventricular size and systolic function, EF 55 %. No regional wall motion abnormalities. Right Ventricle The right ventricle is normal in size and function. Right Atrium The right atrium is normal in size. Left Atrium The left atrium is normal in size. Mitral Valve No gross abnormalities noted Aortic Valve No gross abnormalities noted Tricuspid Valve No gross abnormalities noted Pulmonic Valve No gross abnormalities noted Pericardium Normal pericardium without effusion. Aorta Normal ascending aorta dimension. IVC The inferior vena cava appears normal. CONCLUSIONS Normal left ventricular size and systolic function, EF 55 %. No regional wall motion abnormalities. Normal cardiac chamber sizes. No gross valvular abnormalities. There is no pericardial effusion. There are no intracardiac masses. Compared to the study from 10/06/2019, there may not be a significant change. Dr Octaviano Ibrahim MD [facility] (Electronically Signed) Final Date: 07 March 2023 20:33 S
[2023-03-07 06:11] LABS: Glucose Point of Care 95 mg/dL (70-110)
[2023-03-07] MEDS: lisinopril 20 mg Tablet PO (09:06)
--- NOTE | 2023-03-07 12:00 | CT_ITS ---
WS: [id number] CT HEAD TECHNIQUE: Noncontrast CT of the head obtained from the skullbase to the vertex. CLINICAL INFORMATION: 24 hrs post tPA COMPARISON: CT 03/06/2023 DLP: 1056.[address] scans at [facility] use at least one of these dose optimization techniques: automated e xposure control; mA and/or kV adjustment per patient size (includes targeted exams where dose is matc hed to clinical indication); or iterative reconstruction. FINDINGS: No evidence of intracranial hemorrhage or mass effect. Ventricular system and basal cisterns are rees nt. Mild small vessel changes with mild parenchymal volume loss. No extra-axial fluid collections. No evidence of mass or mass effect. Paranasal sinuses and mastoid air cells are well aerated. Normal visualized soft tissues. IMPRESSION: 1. No evidence of intracranial hemorrhage or mass effect. 2. No acute intracranial findings.
[2023-03-07 12:10] LABS: Glucose Point of Care 168 mg/dL (70-110)
[2023-03-07] MEDS: insulin lispro 100 unit/1 mL SUBCUT (13:01)
--- NOTE | 2023-03-07 14:38 | PM.DCS ---
Discharge Providers Date of Admission: 03/06/23 13:58 Date of Discharge: March 07, 2023 Attending Provider at Admission: Kristin Deutsch MD Attending Provider at Discharge: Kristin Deutsch MD Primary Care Provider: Jose Alberto Ordonez Diagnoses at Discharge Discharge Diagnosis (1) Cerebellar stroke: Status: Acute Reason for Visit Reason for Visit: n/v Hospital Course Hospital Course Travis Garzon is a 72 year old male who was in his usual state of health until 9:30 this morning when he suddenly developed acute onset of headache dizziness and ataxia.?On examination the patient had ratchety eye movements to the right and nystagmus at end gaze on the right.? He had ovgqhe-ayts-poehag and johh-guju-uafq ataxia on the right side only.? He had no sensory or motor deficit.? His speech was clear. Stroke code was called due to concern for posterior circulation stroke and he received alteplase after being seen by neurology.? CT head was negative.? CTA of the head and neck showed calcified plaque in the left carotid bulb with mild stenosis of the left ICA.? Unremarkable CTA of the vertebrobasilar circulation.? He was admitted to the ICU for post alteplase monitoring.? His symptoms resolved during hosptalization and he is back to baseline at discharge. He had mils meeory impairment at baseline. He was evaluated by PT/OT and speech therapies, did well on assessments. he is being discharged with recommendations to follow up with neurology in 3 weeks. event monitor has been arranged at discharge per neurology recommendations. Physical Exam Narrative: General: No acute distress, AO x3 HEENT: PERRLA, pupils bilaterally equal and reactive, pallors not present Chest: Normal vesicular breath sounds, no added sounds, equal good air entry bilaterally CVS: S1-S2 regular, no murmurs, no tachycardia, no gallops, no rubs Abdomen: Soft, nontender, no organomegaly, bowel sounds present Neuro: No focal deficits, no facial deformity, AO x3, power 5/5 in all limbs Discharge Data Studies Completed and Pending Completed Studies During Hospitalization Category Date Time Status CT head wo con* [id number] Routine Cat Scan 03/07/23 12:[address] head wo con* [id number] Stat Cat Scan 03/06/23 12:04 Completed CTA head neck [CT angio headneck* [id number]] Stat Cat Scan 03/06/23 12:35 Completed XR chest 1V portable [id number] Stat Exams 03/06/23 12:04 Completed Pending at discharge Category Date Time Status CV. echo complete* [id number] Routine Ultrasound 03/07/23 06:00 Taken Radiology Impressions Head/Neck CTA 03/06/23 12:35 IMPRESSION: No large vessel stenosis or occlusion. IMPRESSION: 1. Calcified plaque left carotid bulb with mild stenosis left ICA (less than 50%). 2. Unremarkable CTA of the vertebrobasilar circulation. REFERENCES: NASCET CRITERIA. The degree of stenosis in the cervical segment of the internal carotid artery is based on NASCET criteria. Normal is no stenosis. Mild is less than 50% stenosis. Moderate is 50-69% stenosis. Severe is 70% to 99% stenosis. Total occlusion is no detectable patent lumen. Laboratory Results WBC 10.0 10^3/uL (4.0-10.0) 03/07/23 04:44 RBC 4.59 10^6/uL (4.1-5.3) 03/07/23 04:44 Hgb 13.4 g/dL (11.7-16.6) 03/07/23 04:44 Hct 41.8 % (42.0-52.0) L 03/07/23 04:44 MCV 91.1 fl (80-94) 03/07/23 04:44 MCH 29.2 pg (28.0-34.0) 03/07/23 04:44 MCHC 32.1 g/dL (30.0-36.0) 03/07/23 04:44 RDW 12.5 % (12.1-15.1) 03/07/23 04:44 Plt Count 180 10^3/cmm (130-400) 03/07/23 04:44 MPV 9.8 fL (7.4-10.4) 03/07/23 04:44 Neut % (Auto) 39.0 % 03/07/23 04:44 Lymph % (Auto) 48.6 % 03/07/23 04:44 Dubois % (Auto) 9.0 % 03/07/23 04:44 Eos % (Auto) 2.5 % 03/07/23 04:44 Baso % (Auto) 0.6 % 03/07/23 04:44 Neut # (Auto) 3.92 10^3/uL (1.8-7.7) 03/07/23 04:44 Lymph # (Auto) 4.9 10^3/uL (0.8-4.8) H 03/07/23 04:44 Dubois # (Auto) 0.9 10^3/uL (0.2-0.9) 03/07/23 04:44 Eos # (Auto) 0.3 10^3/uL (0.0-0.8) 03/07/23 04:44 Baso # (Auto) 0.1 10^3/uL (0.0-0.1) 03/07/23 04:44 Nucleated RBC % (auto) 0 % 03/07/23 04:44 Nucleated RBCs # 0.0 /100WBC 03/07/23 04:44 Sodium 138 mmol/L (136-145) 03/07/23 04:44 Potassium 4.4 mmol/L (3.5-5.1) 03/07/23 04:44 Chloride 105 mmol/L (98-107) 03/07/23 04:44 Carbon Dioxide 26 mmol/L (22-29) 03/07/23 04:44 Anion Gap 11.4 (5-19) 03/07/23 04:44 BUN 19 mg/dL (8-23) 03/07/23 04:44 Creatinine 1.3 mg/dL (0.7-1.2) H 03/07/23 04:44 GFR Calculation Not Reportable 03/07/23 04:44 Glucose 63 mg/dL (65-115) L 03/07/23 04:44 POC Glucose 168 mg/dL (70-110) H 03/07/23 12:08 Estimat Average Glucose 134 03/07/23 04:44 Hemoglobin A1c 6.3 % (4.0-6.0) H 03/07/23 04:44 Calculated Osmolality 286 mOsm/kg (285-295) 03/07/23 04:44 Calcium 8.6 mg/dL (8.5-10.5) 03/07/23 04:44 Total Bilirubin 0.2 mg/dL (0.15-1.2) 03/07/23 04:44 AST 12 U/L (0-40) 03/07/23 04:44 ALT 12 U/L (0-41) 03/07/23 04:44 Alkaline Phosphatase 56 U/L (40-130) 03/07/23 04:44 Total Protein 6.0 g/dL (6.6-8.7) L 03/07/23 04:44 Albumin 3.6 g/dL (3.5-5.2) 03/07/23 04:44 Globulin 2.4 g/dL (1.3-4.6) 03/07/23 04:44 Triglycerides 71 mg/dL (0-150) 03/07/23 04:44 Cholesterol 105 mg/dL (0-200) 03/07/23 04:44 LDL Cholesterol, Calc 60 mg/dL (50-129) 03/07/23 04:44 HDL Cholesterol 31 mg/dL (60-100) L 03/07/23 04:44 LDL/HDL Ratio 1.94 RATIO (0.00-3.22) 03/07/23 04:44 Cholesterol/HDL Ratio 3.39 mg/dL (1.0-5.00) 03/07/23 04:44 Urine Color Straw (Yellow) 03/06/23 14:09 Urine Appearance Clear (CLEAR) 03/06/23 14:09 Urine pH 5 (5-7) 03/06/23 14:09 Ur Specific [place] 1.010 (1.005-1.030) 03/06/23 14:09 Urine Protein Neg (Negative) 03/06/23 14:09 Urine Glucose (UA) Norm (Normal) 03/06/23 14:09 Urine Ketones Negative (Negative) 03/06/23 14:09 Urine Blood Neg (Negative) 03/06/23 14:09 Urine Nitrate Negative (Negative) 03/06/23 14:09 Urine Bilirubin Neg (Negative) 03/06/23 14:09 Urine Urobilinogen Norm mg/dL (Negative) 03/06/23 14:09 Ur Leukocyte Esterase Negative (Negative) 03/06/23 14:09 Vitals Last Vital Signs Temp 97.1 F L 03/07/23 12:30 Pulse 70 03/07/23 14:30 Resp 13 03/07/23 14:30 BP 138/63 03/07/23 14:30 Pulse Ox 96 03/07/23 14:30 O2 Del Method Room Air 03/07/23 14:30 Discharge Plan Discharge Patient Disposition: Home Condition: Stable Prescriptions: Continued Januvia 100 mg tablet 100 mg PO QAM enalapril maleate 20 mg Tablet 20 mg PO QAM aspirin 81 mg Tablet,Delayed Release (Dr/Ec) 81 mg PO QAM metformin 1,000 mg Tablet 1,000 mg PO BID multivitamin Tablet 1 tab PO DAILY atorvastatin 40 mg tablet 40 mg PO BEDTIME Nitrostat 0.4 mg Tablet, Sublingual 0.4 mg SUBLINGUAL Q5M PRN (Reason: Chest Pain) Rx Instructions: do not exceed 3 doses per episode metoprolol tartrate 25 mg tablet 25 mg PO QAM Basaglar KwikPen U-100 Insulin 100 unit/mL (3 mL) insulin pen 30 unit SUBCUT BEDTIME Discontinued Claritin 10 mg Tablet 10 mg PO BEDTIME Discharge Orders: Discharge Order (Routine); Ordered 03/07/23 Ordered By: Kristin Deutsch Other Ambulatory Orders: MCT/Event Monitor 21 Days (Routine) Timeframe: [id number] Facility: [facility] - Location: Radiology Ordered By: Kristin Deutsch Referrals: Suzanne Clark MD [Physician] - 3 weeks Jose Alberto Ordonez [Primary Care Provider] - Discharge Diet: Cardiac Discharge Activity: Resume usual activity Patient Instructions: Ischemic Stroke (DC), Opioid Safety Discharge Attestations Time Spent in Discharge Care*: greater than 30 min Quality Metrics Clinical Quality Measures [ Cerebrovascular Accident { Contraindication to Antithrombotic: None; antithrombotic prescribed; Contraindication to Anticoagulation: Overlap treatment not indicated; Contraindication to Statin: None; Statin prescribed;}] Coding Level of Care Code Acute Code for Chg Fwd Total time (in minutes) for Discharge: 45 Diagnoses Cerebellar stroke I63.9
--- NOTE | 2023-03-07 16:00 | PC.NURSE ---
Patient discharged. IVs removed. Upcoming appointment (heart care and neurology), activity, medication changes, and reportable symptom education provided to patient and his . patient signature form sign. patient assisted out to vehicle via wheelchair.
== END 2023-03-07 16:01 | disposition home or self-care (01) | DRG 63 ==
LOC: ER 14:05 → ICU 14:13
PROVIDERS: Admitting Provider Student in an Organized Health Care Education/Training Program; Emergency Provider Family Medicine; PCP Family Medicine; Visit Provider Student in an Organized Health Care Education/Training Program
DX: I63.542 Cerebral infarction due to unspecified occlusion or stenosis of left cerebellar artery (principal); R27.0 Ataxia, unspecified; Z79.82 Long term (current) use of aspirin; Z79.4 Long term (current) use of insulin; I25.10 Atherosclerotic heart disease of native coronary artery without angina pectoris; I10 Essential (primary) hypertension; E78.5 Hyperlipidemia, unspecified; E11.9 Type 2 diabetes mellitus without complications
CPT/HCPCS: 36416; 36592; 70450; 70496; 70498; 71045; 80053; 80061; 81003; 82962; 83036; 85025; 92523; 92610; 93005; 93306; 96372; 96374; 96376; 97110; 97161; 97165; 99285; J1815; J2997; Q9967

== ENCOUNTER → 2023-03-09 13:25 | Outpatient (BNVA) | payer MEDICARE, OTHER, SELFPAY | PROVIDERS: PCP Family Medicine; Visit Provider Nurse Practitioner Family | DX: I63.9 Cerebral infarction, unspecified (principal); I10 Essential (primary) hypertension | CPT/HCPCS: 99214 ==

== ENCOUNTER → 2023-05-03 08:35 | Outpatient (BNVA) | payer MEDICARE, OTHER, SELFPAY | PROVIDERS: PCP Family Medicine; Visit Provider Specialist | DX: Z09 Encounter for follow-up examination after completed treatment for conditions other than malignant neoplasm (principal); I63.50 Cerebral infarction due to unspecified occlusion or stenosis of unspecified cerebral artery; F17.210 Nicotine dependence, cigarettes, uncomplicated; E11.9 Type 2 diabetes mellitus without complications; E78.5 Hyperlipidemia, unspecified; I10 Essential (primary) hypertension | CPT/HCPCS: 99204 ==

== ENCOUNTER → 2023-08-23 09:46 | Outpatient (BNVA) | payer MEDICARE, OTHER, SELFPAY | PROVIDERS: PCP Family Medicine; Visit Provider Nurse Practitioner Family | DX: I25.10 Atherosclerotic heart disease of native coronary artery without angina pectoris (principal); I10 Essential (primary) hypertension | CPT/HCPCS: 99214 ==

== ENCOUNTER 2023-09-18 11:57 | Emergency (ER) | payer MEDICARE, OTHER, SELFPAY ==
[2023-09-18 12:09] VITALS: BP 175/73; PULSE 53; RESP 16; TEMP 36.6; O2SAT 97; BMI 29.4
--- NOTE | 2023-09-18 12:20 | XRR_ITS ---
PROCEDURE INFORMATION: Exam: XR Chest Exam date and time: 09/18/2023 12:49 PM Age: 72 years old Clinical indication: Other: Dizzy TECHNIQUE: Imaging protocol: Radiologic exam of the chest. Views: 1 view. COMPARISON: CR XR chest 1V portable [id number] 03/06/2023 12:39 PM FINDINGS: Lungs: Subsegmental atelectasis in the left base. No infiltrate. Pleural spaces: Unremarkable. No pleural effusion. No pneumothorax. Heart/Mediastinum: Unremarkable. No cardiomegaly. Bones/joints: Degenerative change both shoulders. XR/XR chest 1V portable [id number] IMPRESSION: Subsegmental atelectasis in the left base.
--- NOTE | 2023-09-18 12:21 | ED_ITS ---
HPI - Dizziness 2 General: Chief Complaint: Dizziness Stated Complaint: head pressure, dizzy Time Seen by Provider: 09/18/23 12:16 Source: patient Mode of arrival: ambulatory Limitations: no limitations History of Present Illness: HPI Narrative: 72-year-old male history of stroke last year he states that this morning he turned around in bed started having pressure headache and is head and had some lightheadedness. He states he feels dizzy but more lightheadedness with standing he states room not spinning I had him ambulate and he is ambulating with no difficulties no slurred speech no weakness. Associated symptoms: Reports headache(s); Denies chest pain, chills, nausea or vomiting Associated neuro symptoms: Deny numbness in extremities Review of Systems 2 Const: Denies: fever(s), chills, body aches or change in appetite Eyes: Denies: blurry vision or eye discomfort ENMT: Denies: throat pain or dental pain Card: Reports: lightheadedness; Denies: chest pain Resp: Denies: dyspnea GI: Denies: abdominal pain, nausea, vomiting or diarrhea Musc: Denies: neck pain or back pain Skin/Breast: Denies: rash Neuro: Reports: headache(s); Denies: numbness in extremities or weakness in extremities PFSH ED 2 PFSH: Medical History Dyslipidemia Orthostatic hypotension 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 Dyslipidemia (high LDL; low HDL) Type 2 diabetes mellitus Benign essential hypertension with target blood pressure below 140/90 Family History Denies family history of Diabetes CAD (coronary artery disease) Clotting disorder Dementia Chronic kidney disease (CKD) Suicide Anesthesia complication Bleeding disorder Lung disease Cancer Stroke Social History Smoking and tobacco/nicotine status: never used tobacco/nicotine Alcohol intake: never Substance/Drug Use: never Physical Exam 2 Const: COMMON NORMALS: no acute distress, patient oriented x3 and healthy appearing HENMT: COMMON NORMALS: normocephalic and atraumatic HEAD & SCALP: n ormocephalic and atraumatic Eye: COMMON NORMALS: Equal, round and reactive pupils present and EOMs intact bilaterally VISUAL ACUITY: Yes acuity normal VISUAL TAVARES: No peripheral vision loss, No left visual field cut, No right visual field cut, No bitemporal visual field cut, No binasal visual field cut and No visual field cut by quadrant PUPIL: Yes Equal, round and reactive pupils present Neck/C-Spine: COMMON NORMALS: full ROM and supple Chest: COMMONS NORMALS: normal inspection of the chest Resp: COMMON NORMALS: normal respiratory effort Cardio: COMMON NORMALS: regular rate, regular rhythm and No murmurs present (Cardio) RATE: regular rate RHYTHM: regular rhythm Extremity: COMMON NORMALS: normal to inspection and full ROM Neuro: COMMON NORMALS: patient oriented x3, moves all extremities and no focal motor deficits SPEECH: speech normal GAIT: Yes Normal gait present M OTOR EXAM: 5/5 motor strength present throughout Psych: COMMON NORMALS: mental status grossly normal, Normal thought process present and cooperative THOUGHT PROCESS: Normal thought process present Skin: COMMON NORMALS: no rashes or lesions noted and no wounds GENERAL SKIN EXAM: no rashes or lesions noted Course 2 Vital Signs: Vital signs: Vital Signs Temperature 97.9 F 09/18/23 12:09 Pulse Rate 53 L 09/18/23 12:09 Respiratory Rate 16 09/18/23 12:09 Blood Pressure 175/73 09/18/23 12:09 Pulse Oximetry 97 09/18/23 12:09 Oxygen Delivery Me thod Room Air 09/18/23 12:09 MDM - Dizziness Medical Decision Making Patient presents here feeling lightheadedness has since resolved he feels much improved here after fluids I did ambulate him and he had no ataxia no vertigo his exam here shows no focal deficit imaging is all normal here as well I feel he stable for discharge she sees his primary care doctor tomorrow follow-up as scheduled return if worsening he understands agrees to plan Medical Records I reviewed the patient's medical records. Lab Data I reviewed the patient's lab results. 09/18/23 12:41 09/18/23 12:41 Radiology Impressions Chest X-Ray 09/18/23 12:20 IMPRESSION: Subsegmental atelectasis in the left base. Laboratory Results WBC 8.06 10^3/uL (3.29-11.43) 09/18/23 12:41 RBC 5.34 10^6/uL (3.85-5.65) 09/18/23 12:41 Hgb 15.40 g/dL (11.27-16.99) 09/18/23 12:41 Hct 47.4 % (37-53) 09/18/23 12:41 MCV 88.8 fl (82-101) 09/18/23 12:41 MCH 28.8 pg (27-33) 09/18/23 12:41 MCHC 32.5 g/dL (30-55) 09/18/23 12:41 RDW 12.6 % (12.1-15.1) 09/18/23 12:41 Plt Count 204 10^3/cmm (157-399) 09/18/23 12:41 MPV 9.7 fL (7.4-10.4) 09/18/23 12:41 Neut % (Auto) 39.3 % 09/18/23 12:41 Lymph % (Auto) 48.6 % 09/18/23 12:41 Tama % (Auto) 8.1 % 09/18/23 12:41 Eos % (Auto) 3.1 % 09/18/23 12:41 Baso % (Auto) 0.7 % 09/18/23 12:41 Neut # (Auto) 3.16 10^3/uL (1.8-7.7) 09/18/23 12:41 Lymph # (Auto) 3.9 10^3/uL (0.8-4.8) 09/18/23 12:41 Tama # (Auto) 0.7 10^3/uL (0.2-0.9) 09/18/23 12:41 Eos # (Auto) 0.3 10^3/uL (0.0-0.8) 09/18/23 12:41 Baso # (Auto) 0.1 10^3/uL (0.0-0.1) 09/18/23 12:41 Nucleated RBC % (auto) 0 % 09/18/23 12:41 Nucleated RBCs # 0.0 /100WBC 09/18/23 12:41 PT 13.10 SECONDS (12.1-14.9) 09/18/23 12:41 INR 0.96 (0.8-1.2) 09/18/23 12:41 Sodium 139 mmol/L (136-145) 09/18/23 12:41 Potassium 4.4 mmol/L (3.5-5.1) 09/18/23 12:41 Chloride 102 mmol/L (98-107) 09/18/23 12:41 Carbon Dioxide 26 mmol/L (22-29) 09/18/23 12:41 Anion Gap 15.4 (5-19) 09/18/23 12:41 BUN 17 mg/dL (8-23) 09/18/23 12:41 Creatinine 1.4 mg/dL (0.7-1.2) H 09/18/23 12:41 GFR Calculation Not Reportable 09/18/23 12:41 Glucose 110 mg/dL (65-115) 09/18/23 12:41 Calculated Osmolality 290 mOsm/kg (285-295) 09/18/23 12:41 Calcium 9.3 mg/dL (8.5-10.5) 09/18/23 12:41 Total Bilirubin 0.3 mg/dL (0.15-1.2) 09/18/23 12:41 AST 13 U/L (0-40) 09/18/23 12:41 ALT 14 U/L (0-41) 09/18/23 12:41 Alkaline Phosphatase 67 U/L (40-130) 09/18/23 12:41 Total Protein 7.7 g/dL (6.6-8.7) 09/18/23 12:41 Albumin 4.5 g/dL (3.5-5.2) 09/18/23 12:41 Globulin 3.2 g/dL (1.3-4.6) 09/18/23 12:41 All radiology interpretation(s) finalized by discharge EKG Data EKG 1: I personally reviewed and interpreted this EKG as follows: EKG interpretation date: 09/18/23 EKG interpretation time: 12:26 Interpretation: sinus concepción hr [address] or t wave abnormalities qrs 89 qtc 387 Discharge Plan Discharge Patient Disposition: Home Clinical Impression: Light-headed feeling Condition: Stable Prescriptions: No Action sitagliptin phosphate 100 mg tablet 100 mg PO QAM enalapril maleate 20 mg Tablet 20 mg PO QAM aspirin 81 mg Tablet,Delayed Release (Dr/Ec) 81 mg PO QAM metformin 1,000 mg Tablet 1,000 mg PO BID multivitamin Tablet 1 tab PO DAILY atorvastatin 40 mg tablet 40 mg PO BEDTIME Nitrostat 0.4 mg Tablet, Sublingual 0.4 mg SUBLINGUAL Q5M PRN (Reason: Chest Pain) Rx Instructions: do not exceed 3 doses per episode metoprolol tartrate 25 mg tablet 25 mg PO QAM insulin glargine [Basaglar KwikPen U-100 Insulin] 100 unit/mL (3 mL) insulin pen 30 unit SUBCUT BEDTIME Discharge Orders: Discharge ED (Routine); Ordered 09/18/23 Ordered By: Marizol Mckenzie Referrals: Jose Alberto Ordonez [Primary Care Provider] - Discharge Diet: Advance as tolerated Discharge Activity: Resume usual activity Patient Instructions: Lightheadedness (ED) Coding Level of Care Code 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
--- NOTE | 2023-09-18 12:22 | CT_ITS ---
WS: [id number] CTA HEAD AND NECK TECHNIQUE: Contrast enhanced CTA of the head and neck with coronal and sagittal reformatted images an d maximum intensity projection (MIP) images. NASCET criteria utilized. CLINICAL INFORMATION: dizzy COMPARISON: CT 03/06/2023 DLP: 1105.[address] scans at [facility] use at least one of these dose optimization techniques: automated e xposure control; mA and/or kV adjustment per patient size (includes targeted exams where dose is matc hed to clinical indication); or iterative reconstruction. FINDINGS: No evidence intracranial hemorrhage or mass effect. Ventricular system and basal cisterns a re patent. Cavernous carotid calcification. No extra-axial fluid collections. Mild mucosal thickening in the paranasal sinuses. Mastoid air cells are well aerated. Normal posterior nasopharynx. RIGHT: RIGHT common carotid artery is patent. No significant RIGHT ICA stenosis. Mild atheromatous pl aque. RIGHT ICA is patent to the skull base. Cavernous carotid calcification. LEFT: LEFT common carotid is patent. Moderate calcified atheromatous plaque LEFT bulb extending into the ICA with less than 50% stenosis. LEFT ICA is patent to the skull base. Cavernous carotid calcific ation. This appears unchanged compared to 03/06/2023. INTRACRANIAL CTA: Both vertebral arteries are patent. Basilar artery is patent. Persistent RIGHT SPRAY DRIER. Normal vasc ularity to the SPRAY DRIER territory bilaterally. Both ICAs are patent at the skull base. Small RIGHT A1 segment. Normal vascularity to the DANIELLA and MCA territories bilaterally. No evidence of flow-limiting intracranial stenosis or aneurysm. IMPRESSION: 1. No significant RIGHT ICA stenosis. 2. Less than 50% LEFT ICA stenosis unchanged. 3. Vertebral arteries are patent. 4. No flow-limiting intracranial stenosis.
--- NOTE | 2023-09-18 12:26 | ECG_ITS ---
[facility] Test Date: 2023-09-18 Pat Name: Travis Garzon Department: Room: Gender: Male Senior Counsel Commercial: : 1950 Requested By: Marizol Mckenzie Order Number: [id number] Cecelia MD: Arsalan Nelson M.D. Measurements Intervals [place] Rate: 57 P: 57 OR: 174 QRS: 78 QRSD: 89 T: 77 QT: 392 QTc: 385 Interpretive Statements SINUS BRADYCARDIA Compared to ECG 03/06/2023 12:09:11 Sinus rhythm no longer present Electronically Signed On 09-18-2023 13:28:44 JOINTER MACHINE by Arsalan Nelson M.D. [id number]
[2023-09-18 12:50] LABS: Basophils # 0.1 10^3/uL (0.0-0.1); Basophils % 0.7 %; Eosinophils # 0.3 10^3/uL (0.0-0.8); Eosinophils % 3.1 %; Hematocrit 47.4 % (37-53); Lymphocytes # 3.9 10^3/uL (0.8-4.8); Lymphocytes % 48.6 %; Mean Corpuscular HGB Conc 32.5 g/dL (30-55); Mean Corpuscular Hemoglobin 28.8 pg (27-33); Mean Corpuscular Volume 88.8 fl (82-101); Mean Platelet Volume 9.7 fL (7.4-10.4); Monocytes # 0.7 10^3/uL (0.2-0.9); Monocytes % 8.1 %; Neutrophils # 3.16 10^3/uL (1.8-7.7); Neutrophils % 39.3 %; Nucleated Red Blood Cells % 0 %; Platelet Count 204 10^3/cmm (157-399); Red Blood Count 5.34 10^6/uL (3.85-5.65); Red Cell Distribution Width 12.6 % (12.1-15.1); White Blood Count 8.06 10^3/uL (3.29-11.43)
[2023-09-18] MEDS: meclizine 25 mg tablet 50 MG PO (12:55)
[2023-09-18] MEDS: sodium chloride 0.9% 1,000 ML 999 ML IV (12:55)
[2023-09-18] MEDS: iohexol 350 mg/mL 500 mL Btl (per mL) IV (12:58)
[2023-09-18 13:06] LABS: INR 0.96 (0.8-1.2)
[2023-09-18 13:14] LABS: Alanine Aminotransferase 14 U/L (0-41); Albumin Level 4.5 g/dL (3.5-5.2); Alkaline Phosphatase 67 U/L (40-130); Anion Gap 15.4 (5-19); Aspartate Amino Transferase 13 U/L (0-40); Blood Urea Nitrogen 17 mg/dL (8-23); Calcium 9.3 mg/dL (8.5-10.5); Carbon Dioxide 26 mmol/L (22-29); Chloride 102 mmol/L (98-107); Globulin 3.2 g/dL (1.3-4.6); Glucose 110 mg/dL (65-115); Osmolality Calculated 290 mOsm/kg (285-295); Potassium 4.4 mmol/L (3.5-5.1); Sodium 139 mmol/L (136-145); Total Bilirubin 0.3 mg/dL (0.15-1.2); Total Protein 7.7 g/dL (6.6-8.7)
[2023-09-18 13:17] LABS: Creatinine Clr Calc Pharmacy 54.6391
== END 2023-09-18 14:12 | disposition home or self-care (01) ==
PROVIDERS: Emergency Provider Emergency Medicine; PCP Family Medicine
DX: R42 Dizziness and giddiness (principal); Z79.82 Long term (current) use of aspirin; Z79.4 Long term (current) use of insulin; E78.5 Hyperlipidemia, unspecified; I25.10 Atherosclerotic heart disease of native coronary artery without angina pectoris; E11.9 Type 2 diabetes mellitus without complications; I10 Essential (primary) hypertension
CPT/HCPCS: 70496; 70498; 71045; 80053; 85025; 85610; 93005; 96360; 99285; J7030; J8597; Q9967

== ENCOUNTER → 2024-02-27 15:04 | Outpatient (BNVA) | payer MEDICARE, OTHER, SELFPAY | PROVIDERS: PCP Family Medicine; Visit Provider Internal Medicine Cardiovascular Disease | DX: I25.10 Atherosclerotic heart disease of native coronary artery without angina pectoris (principal); I10 Essential (primary) hypertension; R53.83 Other fatigue; R00.1 Bradycardia, unspecified | CPT/HCPCS: 99214 ==

== ENCOUNTER → 2024-09-03 10:09 | Outpatient (BNVA) | payer MEDICARE, OTHER, SELFPAY | PROVIDERS: PCP Family Medicine; Visit Provider Nurse Practitioner Family | DX: I25.10 Atherosclerotic heart disease of native coronary artery without angina pectoris (principal); I10 Essential (primary) hypertension | CPT/HCPCS: 99213 ==

== ENCOUNTER → 2025-05-01 14:51 | Outpatient (BNVA) | payer MEDICARE, OTHER, SELFPAY | PROVIDERS: PCP Family Medicine; Visit Provider Internal Medicine Cardiovascular Disease | DX: I25.10 Atherosclerotic heart disease of native coronary artery without angina pectoris (principal); R00.1 Bradycardia, unspecified; I10 Essential (primary) hypertension; E78.5 Hyperlipidemia, unspecified | CPT/HCPCS: 99214 ==